=== PATIENT | male | born 1950 | race Caucasian/White ===

== ENCOUNTER 2024-04-05 21:43 | Emergency (ER) | payer MEDICARE, MEDICAID, SELFPAY ==
[2024-04-05 21:44] VITALS: BMI 20.9
--- NOTE | 2024-04-05 21:52 | EKG_ITS ---
[facility] Test Date: 2024-04-05 Pat Name: RICARDO DEAN Department: Room: - Gender: Male Director Account Management: : 1950 Requested By: Luis Boykin Order Number: [id number] Reading MD: Luis Boykin Measurements Intervals [place] Rate: 94 P: OR: QRS: -63 QRSD: 104 T: -65 QT: 364 QTc: 457 Interpretive Statements ATRIAL FIBRILLATION WITH ABERRANT CONDUCTION OR VENTRICULAR PREMATURE COMPLEXES Compared to ECG 03/16/2024 03:02:52 Ventricular premature complex(es) now present Aberrant conduction of supraventricular beat(s) now present Sinus rhythm no longer present Left anterior fascicular block no longer present /store/S0/[id number].pdf
[2024-04-05 22:04] VITALS: BP 98/63; PULSE 102; RESP 20; TEMP 36.6; O2SAT 95
--- NOTE | 2024-04-05 22:18 | XR_ITS ---
Examination: AP chest single view Technique: AP portable upright chest single view Exam date and time: April 05, 2024 10:26 PM Comparison March 15, 2024 Indications: Shortness of breath today Findings: Normal heart size Mild parenchymal disease in the right upper lobe including possible 8mm cavitary lesion right upper lobe No pulmonary edema Moderate osteopenia Impression: Mild parenchymal disease right upper lobe, possible small cavitary lesion Recommend AP lordotic chest follow-up
--- NOTE | 2024-04-05 22:19 | PD.EDRME ---
Rapid Medical Screening Exam RME Arrival date/time: 04/05/24 21:43 73M with history of asthma/COPD, GERD, and recent ME presents to ED with CP and SOB (SOB>CP). Chief Complaint: Chest Pain Vital signs: Vital Signs Temperature 97.9 F 04/05/24 22:04 Pulse Rate 102 H 04/05/24 22:04 Respiratory Rate 20 04/05/24 22:04 Blood Pressure 98/63 04/05/24 22:04 Pulse Oximetry (%) 95 04/05/24 22:04 Oxygen Delivery Method Room Air 04/05/24 22:04
[2024-04-05 23:15] LABS: Basophils % (Auto) 1 % (0-2.5); Eosinophils # (Auto) 0.2 Thou/mm3 (0.0-0.5); Eosinophils % (Auto) 4 % (0-10); Hematocrit 37.5 % (41.0-53.0); Hemoglobin 12.4 g/dL (13.5-16.0); Immature Granulocytes % (Auto) 0 % (0-0); Immature Granulocytes Auto 0.01 Thou/mm3 (0.00-0.00); Lymphocytes # (Auto) 1.4 Thou/mm3 (1.0-4.8); Lymphocytes % (Auto) 22 % (10-50); Mean Corpuscular HGB Conc 33.1 g/dl (31.0-37.0); Mean Corpuscular Hemoglobin 27.5 pg (25.0-35.0); Mean Corpuscular Volume 83 fL (80-100); Monocytes # (Auto) 0.9 Thou/mm3 (0.0-0.8); Monocytes % (Auto) 14 % (0-12); Neutrophils # (Auto) 3.6 Thou/mm3 (1.8-7.7); Neutrophils % (Auto) 59 % (37-80); Nucleated Red Blood Cell % 0 /100 WBC (0); Platelet Count 217 Thou/mm3 (140-440); Red Blood Count 4.51 Miln/mm3 (4.50-5.90); White Blood Count 6.1 Thou/mm3 (3.8-10.6)
[2024-04-05 23:30] LABS: INR 1.1 (0.9-1.3); Partial Thromboplastin Time 25.1 Seconds (22.0-36.0); Prothrombin Time 11.8 Seconds (9.0-12.2)
[2024-04-05 23:34] LABS: B-Type Natriuretic Peptide 344 pg/mL (0-100)
[2024-04-05 23:35] LABS: Alanine Aminotransferase 23 U/L (10-49); Albumin, Serum 3.9 gm/dL (3.4-4.8); Albumin/Globulin Ratio 1.4 (1.2-2.2); Alkaline Phosphatase 137 U/L (46-116); Anion Gap 7 (7-16); Aspartate Amino Transferase 21 U/L (0-34); BUN/Creatinine Ratio 17 Ratio (12-20); Bilirubin,Total 0.3 mg/dL (0.3-1.2); Blood Urea Nitrogen 15 mg/dL (9-23); Calcium 8.9 mg/dL (8.3-10.6); Carbon Dioxide 25.2 mMol/L (20.0-31.0); Chloride 107 mMol/L (98-107); Creatinine (Component) 0.9 mg/dL (0.6-1.3); Estimated Creatinine Clearance 66.6 mL/min (>60); Globulin 2.7 gm/dL (2.3-3.5); Glucose 104 mg/dL (74-106); Magnesium 2.1 mg/dL (1.6-2.6); Osmolality,Calculated 278 (275-295); Potassium 4.1 mMol/L (3.4-5.1); Sodium 139 mMol/L (136-145); Total Protein 6.6 gm/dL (5.7-8.2); Troponin I 0.043 ng/mL (0.0-0.045); eGFR > 60 See Note
[2024-04-05 23:59] VITALS: BP 136/78; PULSE 88; RESP 18; TEMP 36.7; O2SAT 100
[2024-04-06] VITALS (9 sets, daily range): BP systolic 114–150; BP diastolic 69–90; PULSE 90–110; RESP 16–24; TEMP 36.6–36.8; O2SAT 95–100
--- NOTE | 2024-04-06 01:05 | PD.EDCHEST ---
ED Chest Pain RME/HPI General Chief Complaint: Chest Pain Stated Complaint: Chest pain- recent ID Time Seen by Provider: 04/06/24 01:04 Arrival date/time: 04/05/24 21:43 Limitations: no limitations RME / HPI RME / HPI narrative: 04/05/24 21:43 73M with history of asthma/COPD, GERD, and recent ID presents to ED with CP and SOB (SOB>CP). ---- Dr. Swartz's Main ED Evaluation: 73yo male presents to the ED for complaints of shortness of breath and chest pain. Patient states his shortness of breath has been worsening over the last 2-3 days. He endorses having left-sided chest pain that is progressively getting worse and is unable to sleep. He notes he's been more stressed than usual due to being concerned over his . He denies any N/V, fever, chills or any other associated symptoms. No known allergies. Patient notes he hasn't smoked cigarettes since being discharged from the hospital on 03/18/24. Related Data Previous Rx's ?Medication ?Instructions ?Recorded famotidine 40 mg tablet (Pepcid) 40 mg PO QDAY #30 tabs 04/27/20 albuterol sulfate 90 mcg/actuation 1 inh inhalation QID PRN shortness 04/20/23 aerosol inhaler of breath or wheezing #8.5 grams aspirin 81 mg tablet,delayed 81 mg PO QDAY #30 tabs 03/18/24 release atorvastatin 80 mg tablet 80 mg PO QPM #30 tabs 03/18/24 ticagrelor 90 mg tablet (Brilinta) 90 mg PO BID 1 month #60 tabs 03/18/24 Allergies Allergy/AdvReac Type Severity Reaction Status Date / Time No Known Allergies Allergy Verified 04/05/24 21:46 Review of Systems Review of Systems Systems Reviewed: All systems reviewed, normal except as documented ED Exam General Limitations: Present no limitations General appearance: Present alert, in no apparent distress, cachectic and other (talking in full sentences) Head Head exam: Present atraumatic Eye Eye exam: Present normal appearance, PERRL and EOMI ENT ENT exam: Present normal exam, normal oropharynx and mucous membranes moist Neck Neck exam: Present normal inspection, full ROM and trachea midline Chest Chest inspection: Present symmetric chest wall rise and other (barrel chested) Respiratory Respiratory exam: Present other (rhonchi to the bilateral bases R>L); Absent wheezes or accessory muscle use Cardiovascular Cardiovascular exam: Present regular rate, normal rhythm and normal heart sounds Abdominal Exam Abdominal exam: Present soft and normal bowel sounds Extremities Exam Extremities exam: Present normal inspection and full ROM; Absent pedal edema Back Exam Back exam: Present normal inspection and full ROM Neurological Exam Neurological exam: Present alert, oriented X3 and CN II-XII intact Psychiatric Psychiatric exam: Present normal affect and normal mood Skin Skin exam: Present warm, dry, intact and normal color Course Course Course Narrative: CXR is ordered for determining the etiology of chest pain. 0600: Care signed out to Dr. Newton (emergency physician). Past medical, surgical, social and family history reviewed. Vitals and home medications reviewed. Results and treatment plan discussed. They will assume the care of the patient at this time and will follow the patient, pending CT chest. Quality Measures none Orders Category Date Time Status CT Screening NOW Care 04/06/24 06:05 Active EKG (ED ONLY) *Do not use* NOW Care 04/05/24 21:[address] chest w con Stat Exams 04/06/24 06:05 Ordered EKG (ED Only) Stat Exams 04/05/24 21:52 Ordered XR chest 1V portable Stat Exams 04/05/24 22:18 Completed B-Type Natriuretic Peptide Stat Lab 04/05/24 22:58 Completed CBC Stat Lab 04/05/24 22:58 Completed Comprehensive Metabolic Panel Stat Lab 04/05/24 22:58 Completed Magnesium Stat Lab 04/05/24 22:58 Completed Partial Thromboplastin Time Stat Lab 04/05/24 22:58 Completed Prothrombin Time with INR Stat Lab 04/05/24 22:58 Completed Troponin I Stat Lab 04/05/24 22:58 Completed Vital Signs Vital signs: Vital Signs Temperature 97.9 F 04/05/24 22:04 Pulse Rate 102 H 04/05/24 22:04 Respiratory Rate 20 04/05/24 22:04 Blood Pressure 98/63 04/05/24 22:04 Pulse Oximetry (%) 95 04/05/24 22:04 Oxygen Delivery Method Room Air 04/05/24 22:04 Pulse ox is 95% on room air, which is normal according to my interpretation. 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 BOB flow was 0 procedure and postprocedure 3, and 100% preprocedure stenosis and 0% stenosis post-thrombectomy and stent placement. Patient data External records reviewed:: [facility] previous records (Per chart review, patient was admitted here on 03/16/24 for STEMI.) Clinical information provided by:: patient Social determinants that could affect healthcare access:: none Patient has the following chronic illnesses:: COPD, asthma, GERD, ID How is presenting disease/condition affected by chronic disease/condition?: exacerbated by Evaluation data The following diagnostics were reviewed and interpreted by me:: lab results, radiology exam(s) and EKG tracing(s) Lab and/or radiology exams considered but not ordered:: none Interpretation Summary: CBC is normal, CMP is normal, Troponin is normal, BNP is elevated at 344, according to my interpretation. EKG done at 2202, aFib, rate of 94, ventricular PVCs, no ST depressions, similar Q wave compared to previous EKG on 03/16/24, according to my interpretation. ----- I have personally reviewed the radiology data and agree with the radiologist's interpretation below: [facility] Report Signed Patient: RICARDO DEAN Record#: [id number] Birthdate: 1950 Age/Sex: 73 / M Location: [facility] Attending Dr: Ordering Physician: Luis Boykin PA-C Date of Service: 04/05/24 Procedure(s): XR chest 1V portable Accession Number(s): [id number] cc: Flex Zuluaga MD; Luis Boykin PA-C~ Examination: AP chest single view Technique: AP portable upright chest single view Exam date and time: April 05, 2024 10:26 PM Comparison March 15, 2024 Indications: Shortness of breath today Findings: Normal heart size Mild parenchymal disease in the right upper lobe including possible 8mm cavitary lesion right upper lobe No pulmonary edema Moderate osteopenia Impression: Mild parenchymal disease right upper lobe, possible small cavitary lesion Recommend AP lordotic chest follow-up Dictated By: Flex Zuluaga MD Signed By: <Electronically signed by Flex Zuluaga MD in [place]> 04/05/24 3621 Medications / Prescriptions Medications or Prescriptions considered but not ordered:: none Medication administrations:: see above, if any Consultations Consultation(s) initiated? (list below): No Diagnosis Chest Pain Differential Diagnosis: other (pleural effusion, CHF, pericardial effusion, depression, electrolyte abnormality, dehydration, UTI) Most likely diagnosis given after review of the tests above:: see below Admission Indicated Admission indicated?: not indicated Admission Request Was there a request for admission?: No Disposition Plan Disposition Plan: other (specify) (Signed out to Dr. Newton at [address] chest.) Discharge Plan Plan Disposition Comment: stable at signout Prescriptions/Referrals Prescriptions/Med Rec: No Action famotidine [Pepcid] 40 mg tablet 40 mg PO QDAY Qty: 30 0RF aspirin 81 mg Tablet,Delayed Release (Dr/Ec) 81 mg PO QDAY Qty: 30 1RF Brilinta 90 mg Tablet 90 mg PO BID 30 Days Qty: 60 1RF atorvastatin 80 mg tablet 80 mg PO QPM Qty: 30 3RF albuterol sulfate 90 mcg/actuation HFA aerosol inhaler 1 inh inhalation QID PRN (Reason: shortness of breath or wheezing) Qty: 8.5 0RF Rx Instructions: Dispense with spacer and teaching Referrals: Walt Squires MD [Primary Care Provider] - In 1 week Problem List Clinical Impression: Shortness of breath Patient/Caregiver Discharge Instructions Print Language: Georgian
--- NOTE | 2024-04-06 02:29 | PC.NURSE ---
Pt sleeping. Arouses easily.
--- NOTE | 2024-04-06 06:05 | XR_ITS ---
Examination: CT chest with intravenous contrast 2-D sagittal and coronal reconstructions Exam date and time: April 06, 2024 0706 hours INDICATIONS: Coughing chest pain beginning one week ago, recent ureteral stent placement 2 weeks ago CTDI:vol (mGy) 7.52 DLP: (mGycm) 313 Technique: Multiple axial sections of the thorax have been obtained. Sections have been obtained, 3 mm slice thickness. Mediastinal and lung density settings have been obtained. Intravenous contrast administered, 60 cc Isovue-370. 2-D sagittal, coronal images obtained. Low dose protocols were performed. One or more of the following dose reduction techniques were used; automated exposure control, adjustment of the mA and/or KV according to patient size, use of iterative reconstruction technique. Findings: No thoracic aortic aneurysmal dilatation or dissection No pulmonary artery emboli on this non-CTA study Heavy calcification left main left anterior descending left circumflex coronary arteries No paratracheal tracheobronchial or bronchopulmonary adenopathy Pulmonary scarring throughout the lung 2 mm pulmonary nodule right lower lobe image 154 4 mm pulmonary nodule left lower lobe image 166 2 mm pulmonary nodule left lower lobe image 168 COPD with areas of airspace destruction, multiple No lobar pneumonia or pulmonary edema Retrocardiac gastric hernia Small left lobe liver cyst Spleen is not enlarged No pancreatic or adrenal mass Moderate thoracic spondylosis IMPRESSION: COPD Negative for pulmonary artery emboli Mild bilateral pulmonary fibrosis Subcentimeter pulmonary nodules as above, with this study is baseline recommend 6 month follow-up CT chest without contrast
--- NOTE | 2024-04-06 06:42 | PC.NURSE ---
Pt has been resting quietly. States pain very mild and increases with cough. Pt does havew nonproductive cough.
[2024-04-06 08:27] LABS: Troponin I 0.036 ng/mL (0.0-0.045)
--- NOTE | 2024-04-06 10:54 | EDNOTE_ITS ---
Emergency Room Addendum Addendum Narrative: 0600: Care assumed from Dr. Guerrero, the previous shift emergency physician. Past medical, surgical, social and family history reviewed. Vitals and home medications reviewed. I will assume the care of the patient at this time, pending CT chest report and delta troponin. Please refer to the emergency department record for history and examination from initial visit.? Nursing notes reviewed by me. Vital signs reviewed by me. [place] [facility] medical records reviewed by me. 1105: On reassessment, patient reports feeling improved. States about 3 weeks ago he had an CO and s/p PCI placement. Reports since then, has had on/off chava rtness of breath with dry cough. Last night states the dry cough kept him up and had difficulty sleeping. We reviewed all the results, analysis, and treatment plans. Patient is amenable to discharge. Strict return precautions were outlined. Patient was discharged in stable condition. DISPOSITION: Home DIAGNOSIS: Shortness of breath, COPD RADIOLOGY Ordering Physician: Sarah Guerrero MD Date of Service: 04/06/24 Procedure(s): CT chest w con Accession Number(s): [id number] cc: Walt Squires MD; Flex Zuluaga MD; Sarah Guerrero MD~ Examination: CT chest with intravenous contrast 2-D sagittal and coronal reconstructions Exam date and time: April 06, 2024 0706 hours INDICATIONS: Coughing chest pain beginning one week ago, recent ureteral stent placement 2 weeks ago CTDI:vol (mGy) 7.52 DLP: (mGycm) 313 Technique: Multiple axial sections of the thorax have been obtained. Sections have been obtained, 3 mm slice thickness. Mediastinal and lung density settings have been obtained. Intravenous contrast administered, 60 cc Isovue-370. 2-D sagittal, coronal images obtained. Low dose protocols were performed. One or more of the following dose reduction techniques were used; automated exposure control, adjustment of the mA and/or KV according to patient size, use of iterative reconstruction technique. Findings: No thoracic aortic aneurysmal dilatation or dissection No pulmonary artery emboli on this non-CTA study Heavy calcification left main left anterior descending left circumflex coronary arteries No paratracheal tracheobronchial or bronchopulmonary adenopathy Pulmonary scarring throughout the lung 2 mm pulmonary nodule right lower lobe image 154 4 mm pulmonary nodule left lower lobe image 166 2 mm pulmonary nodule left lower lobe image 168 COPD with areas of airspace destruction, multiple No lobar pneumonia or pulmonary edema Retrocardiac gastric hernia Small left lobe liver cyst Spleen is not enlarged No pancreatic or adrenal mass Moderate thoracic spondylosis IMPRESSION: COPD Negative for pulmonary artery emboli Mild bilateral pulmonary fibrosis Subcentimeter pulmonary nodules as above, with this study is baseline recommend 6 month follow-up CT chest without contrast Dictated By: Flex Zuluaga MD Signed By: <Electronically signed by Flex Zuluaga MD in [place]> 04/06/24 1011
[2024-04-06] MEDS: MethylPREDNISolone SOD SUCC 62.5 MG/ML 2ML VIAL 125 MG IVP (12:16)
[2024-04-06] MEDS: ALBUTEROL/IPRATROPIUM (Duoneb) RT SOL 3 ML NEBU INH (12:25)
== END 2024-04-06 13:33 | disposition home or self-care (01) ==
PROVIDERS: Physician Assistant; Emergency Provider Emergency Medicine; PCP Family Medicine
DX: J44.89 Other specified chronic obstructive pulmonary disease (principal); J84.10 Pulmonary fibrosis, unspecified; I48.91 Unspecified atrial fibrillation; R91.8 Other nonspecific abnormal finding of lung field; Z79.02 Long term (current) use of antithrombotics/antiplatelets; I25.2 Old myocardial infarction; Z95.5 Presence of coronary angioplasty implant and graft; Z87.891 Personal history of nicotine dependence
CPT/HCPCS: 36415; 71045; 71260; 80053; 83735; 83880; 84484; 85025; 85610; 85730; 93005; 94640; 96374; 99285; A4649; A9270; J2919; Q9967

== ENCOUNTER 2024-05-18 13:58 | Emergency (ER) | payer MEDICARE, MEDICAID, SELFPAY ==
[2024-05-18] VITALS (10 sets, daily range): BP systolic 82–137; BP diastolic 69–88; PULSE 108–179; RESP 17–31; TEMP 37.2; O2SAT 91–100; BMI 20.5
--- NOTE | 2024-05-18 14:05 | EKG_ITS ---
[facility] Test Date: 2024-05-18 Pat Name: RICARDO DEAN Department: Room: - Gender: Male Economic Geographer: : 1950 Requested By: Madhavi Joaquin Order Number: [id number] Reading MD: Madhavi Joaquin Measurements Intervals [place] Rate: 174 P: IN: QRS: -59 QRSD: 90 T: -35 QT: 261 QTc: 445 Interpretive Statements SUPRAVENTRICULAR TACHYCARDIA ACUTE OR Compared to ECG 04/05/2024 22:02:59 Atrial fibrillation no longer present Ventricular premature complex(es) no longer present Aberrant conduction of supraventricular beat(s) no longer present /store/S0/[id number]/ecg/[id number].pdf
[2024-05-18] MEDS: ADENOSINE INJ 3 MG/ML VIAL 6 MG IVP (14:11)
--- NOTE | 2024-05-18 14:14 | EKG_ITS ---
[facility] Test Date: 2024-05-18 Pat Name: RICARDO DEAN Department: Room: - Gender: Male Surgical Aide: : 1950 Requested By: Madhavi Joaquin Order Number: [id number] Reading MD: Madhaiv Joaquin Measurements Intervals [place] Rate: 113 P: 49 SD: 152 QRS: -55 QRSD: 88 T: -30 QT: 315 QTc: 433 Interpretive Statements SINUS TACHYCARDIA WITH OCCASIONAL VENTRICULAR PREMATURE COMPLEXES MINIMAL VOLTAGE CRITERIA FOR LVH, CONSIDER NORMAL VARIANT [MEETS CRITERIA IN ONE OF: R(aVL), S(V1), R(V5), R(V5/V6)+S(V1)] ACUTE VT Compared to ECG 05/18/2024 14:07:15 Ventricular premature complex(es) now present Supraventricular tachycardia no longer present /store/S0/[id number]/[id number].pdf
--- NOTE | 2024-05-18 14:14 | XR_ITS ---
Examination: AP chest single view Technique: AP portable upright chest single view Standing time: May 18, 2024 1430 hrs. Comparison April 05, 2024 Indications: Onset chest pain today. Findings: Parenchymal disease in the right upper lobe again noted, which may represent scarring Normal heart size Accentuation of the bronchovascular markings No pulmonary edema Moderate osteopenia Impression: Accentuation of bronchovascular markings, consider bronchitis
--- NOTE | 2024-05-18 14:25 | PD.EDARRY ---
ED Arrhythmia Palp. RME/HPI General Chief Complaint: Chest Pain Stated Complaint: SVT Time Seen by Provider: 05/18/24 14:13 Arrival date/time: 05/18/24 13:58 RME / HPI RME / HPI narrative: DR. LYON MAIN ED EVALUATION: 73 year old male presents to the Emergency Department [facility] from home with complaints of chest palpitations and chest tightness, no real aching chest pain more described as tightness. Heart rate in the 170s per EMS. No other symptoms reported at this time. PMHx: Asthma/COPD, GERD, and recent CA (03/2024). Social Hx: Former smoker. Related Data Previous Rx's ?Medication ?Instructions ?Recorded famotidine 40 mg tablet (Pepcid) 40 mg PO QDAY #30 tabs 04/27/20 albuterol sulfate 90 mcg/actuation 1 inh inhalation QID PRN shortness 04/20/23 aerosol inhaler of breath or wheezing #8.5 grams aspirin 81 mg tablet,delayed 81 mg PO QDAY #30 tabs 03/18/24 release atorvastatin 80 mg tablet 80 mg PO QPM #30 tabs 03/18/24 ticagrelor 90 mg tablet (Brilinta) 90 mg PO BID 1 month #60 tabs 03/18/24 albuterol sulfate 90 mcg/actuation 2 puff inhalation Q6H PRN 04/06/24 aerosol inhaler shortness of breath or wheezing #8.5 grams Allergies Allergy/AdvReac Type Severity Reaction Status Date / Time No Known Allergies Allergy Verified 05/18/24 14:20 Review of Systems Review of Systems Systems Reviewed: All systems reviewed, normal except as documented Narrative Review of Systems: GEN: No fever, no chills, no weight loss EYES: No discharge, no visual changes, no pain HEENT: No ear pain, no congestion, no sore throat PULM: No shortness of breath, no cough, no congestion CV: + chest palpitations, + chest tightness, no dyspnea on exertion GI: No nausea, no vomiting, no diarrhea, no pain, no constipation : No frequency, no urgency and no dysuria MUSC/SKEL: No joint pain, no back pain SKIN: No rash PSYCH: No hallucinations, no depression HEME/LYMPH: No easy bleeding or bruising tendencies NEURO: No weakness, no headache Past Medical History Past Medical History CARDIAC: Positive Cardiac Disorders (CA 2 wks ago); Negative Congestive Heart Failure RESPIRATORY: Positive Chronic Obstructive Pulmonary Disease (COPD); Negative Asthma GASTROINTESTINAL: Positive Ulcer and Gastroesophageal Reflux Disease GENITOURINARY: Negative Renal Disease ENT: Positive Cataracts ENDOCRINE: Negative Diabetes Mellitus Type 1 or Diabetes Mellitus Type 2 HEMATOLOGIC: Negative Sickle Cell Disease Social History SMOKING STATUS: Former smoker SECOND HAND EXPOSURE: Yes SUBSTANCE USE: does not use ED Exam Narrative Physical exam: GENERAL APPEARANCE: alert and oriented x 4, well-developed, well-nourished, no acute distress VITALS: All vitals were reviewed and the pulse ox is 100% on room air, which is normal according to my interpretation. HEENT: Normocephalic, atraumatic; pupils equal, round, reactive to light; EOMI; mucous membranes pink, moist; oropharynx clear NECK: Supple LUNGS: CTABL; no wheezes, no rales, no rhonchi HEART: Heart is tachycardic; no murmurs ABDOMEN: non distended; normal BS; soft, no tenderness, no guarding, no rebound; no masses, no organomegaly, no hernia BACK: no CVA tenderness EXTREMITIES: atraumatic; no edema NEUROLOGIC: awake; alert and oriented x4; cranial nerves II-XII grossly intact; no focal sensory or motor deficits PSYCHIATRIC: appropriate mood and affect SKIN: warm, dry, normal color; no rashes Course Quality Measures none Orders Category Date Time Status Dial Mounter NOW Care 05/18/24 14:14 Active EKG (ED ONLY) *Do not use* NOW Care 05/18/24 14:05 Completed EKG (ED ONLY) *Do not use* NOW Care 05/18/24 14:14 Completed EKG (ED Only) Stat Exams 05/18/24 14:05 Draft EKG (ED Only) Stat Exams 05/18/24 14:14 Draft XR chest 1V portable Stat Exams 05/18/24 14:14 Ordered B-Type Natriuretic Peptide Stat Lab 05/18/24 14:14 Ordered CBC Stat Lab 05/18/24 14:14 Ordered Comprehensive Metabolic Panel Stat Lab 05/18/24 14:14 Ordered Lipase Stat Lab 05/18/24 14:14 Ordered Magnesium Stat Lab 05/18/24 14:14 Ordered Partial Thromboplastin Time Stat Lab 05/18/24 14:14 Ordered Prothrombin Time with INR Stat Lab 05/18/24 14:14 Ordered Troponin I Stat Lab 05/18/24 14:14 Ordered Adenosine 6mg Inj [Adenocard Inj] Med 05/18/24 14:02 Discontinued 12 mg .ROUTE .STK-MED ONE Adenosine 6mg Inj [Adenocard Inj] Med 05/18/24 14:00 Discontinued 6 mg .ROUTE .STK-MED ONE Adenosine 6mg Inj [Adenocard Inj] Med 05/18/24 14:01 Discontinued 6 mg .ROUTE .STK-MED ONE Adenosine 6mg Inj [Adenocard Inj] Med 05/18/24 14:07 Discontinued 6 mg IVP X1 ONE Arrhythmia/Palpitations MDM Narrative MDM Narrative:: Amara Beckham am scribing for and in the presence of Dr. Lyon. EKG at 1412 hours: sinus tachycardia, rate 113, Patient data External records reviewed:: [facility] previous records (Reviewed last ED visit dated 04/06/24, discharged with the following: COPD ) and EMS form Clinical information provided by:: patient and EMS Social determinants that could affect healthcare access:: other (specify) (Former smoker) Patient has the following chronic illnesses:: Asthma/COPD, GERD, and recent CA (03/2024) How is presenting disease/condition affected by chronic disease/condition?: exacerbated by Evaluation data The following diagnostics were reviewed and interpreted by me:: lab results and radiology exam(s) Lab and/or radiology exams considered but not ordered:: none Interpretation Summary: Procedure(s): XR chest 1V portable Accession Number(s): [id number] cc: Walt Squires MD; Flex Zuluaga MD; Madhavi Lyon MD~ Examination: AP chest single view Technique: AP portable upright chest single view Standing time: May 18, 2024 1430 hrs. Comparison April 05, 2024 Indications: Onset chest pain today. Findings: Parenchymal disease in the right upper lobe again noted, which may represent scarring Normal heart size Accentuation of the bronchovascular markings No pulmonary edema Moderate osteopenia Impression: Accentuation of bronchovascular markings, consider bronchitis Dictated By: Flex Zuluaga MD Medications / Prescriptions Medications or Prescriptions considered but not ordered:: none Medication administrations:: Medication Administration History Discontinued Medications Adenosine (Adenosine Inj 3 Mg/Ml Vial) Confirm Administered Dose 6 mg .ROUTE .STK-MED ONE Stop: 05/18/24 14:01 Adenosine (Adenosine Inj 3 Mg/Ml Vial) Confirm Administered Dose 6 mg .ROUTE .STK-MED ONE Stop: 05/18/24 14:02 Adenosine (Adenosine Inj 3 Mg/Ml Vial) 6 mg IVP X1 ONE Stop: 05/18/24 14:08 Adenosine (Adenosine Inj 3 Mg/Ml Vial) Confirm Administered Dose 12 mg .ROUTE .STK-MED ONE Stop: 05/18/24 14:03 Consultations Consultation(s) initiated? (list below): No Diagnosis Differential diagnosis arrhythmia/palpitations: palpitations, anxiety and supraventricular tachycardia Most likely diagnosis given after review of the tests above:: SVT Admission Indicated Admission indicated?: not indicated Admission Request Was there a request for admission?: No Disposition Plan Disposition Plan: Discharge Discharge Attestation Discharge Attestation: The patient and all family members were given an opportunity to ask questions and understood the discharge instructions. Discharge instructions specifically effects, indications for sooner follow up or return to the emergency department, and the expected course of current diagnosis. Patient condition: Stable Discharge Plan Plan Patient Disposition: HOME (Self Care) Prescriptions/Referrals Prescriptions/Med Rec: No Action famotidine [Pepcid] 40 mg tablet 40 mg PO QDAY Qty: 30 0RF aspirin 81 mg Tablet,Delayed Release (Dr/Ec) 81 mg PO QDAY Qty: 30 1RF Brilinta 90 mg Tablet 90 mg PO BID 30 Days Qty: 60 1RF atorvastatin 80 mg tablet 80 mg PO QPM Qty: 30 3RF albuterol sulfate 90 mcg/actuation HFA aerosol inhaler 2 puff inhalation Q6H PRN (Reason: shortness of breath or wheezing) Qty: 8.5 0RF albuterol sulfate 90 mcg/actuation HFA aerosol inhaler 1 inh inhalation QID PRN (Reason: shortness of breath or wheezing) Qty: 8.5 0RF Rx Instructions: Dispense with spacer and teaching Referrals: Walt Squires MD [Primary Care Provider] - In 1 week Problem List Clinical Impression: SVT (supraventricular tachycardia) Patient/Caregiver Discharge Instructions Education Materials: Understanding Supraventricular ..., Treatment for Supraventricular ... Print Language: Vietnamese Stand Alone Forms: [facility] Award Info., Patient Portal Info Letter
--- NOTE | 2024-05-18 14:30 | PC.LAC ---
PT MERI FROM HOME HAS BEEN HAVING CHEST TIGHTNESS SINCE AROUND 0600 THIS MORNING, DENIES ANY PAIN ASSOCIATED WITH IT, HOWEVER DOES STATE THAT HE HAD DIZZINESS AND SOB WITH IT. WHEN EMS ARRIVED ON SCENE PT WAS LAYING ON HIS COUCH, ONCE PLACED ON THEIR MONITOR PT WAS IN SVT, PT ARRIVES STAT MEDICAL, ARRIVED TO LEFT AC. PT CONNECTED TO ZOLL PADS AND ADENOSINE ADMINISTERED AND SUCCESSFUL UPON ARRIVAL. PTS HR IN ONE-TEENS AT THIS TIME. CALL [facility] IN [facility], RADIOLOGY AT BEDSIDE.
[2024-05-18 15:26] LABS: Basophils % (Auto) 0 % (0-2.5); Eosinophils # (Auto) 0.1 Thou/mm3 (0.0-0.5); Eosinophils % (Auto) 1 % (0-10); Hematocrit 35.6 % (41.0-53.0); Hemoglobin 11.6 g/dL (13.5-16.0); Immature Granulocytes % (Auto) 0 % (0-0); Immature Granulocytes Auto 0.01 Thou/mm3 (0.00-0.00); Lymphocytes # (Auto) 1.6 Thou/mm3 (1.0-4.8); Lymphocytes % (Auto) 22 % (10-50); Mean Corpuscular HGB Conc 32.6 g/dl (31.0-37.0); Mean Corpuscular Hemoglobin 26.4 pg (25.0-35.0); Mean Corpuscular Volume 81 fL (80-100); Monocytes # (Auto) 0.6 Thou/mm3 (0.0-0.8); Monocytes % (Auto) 9 % (0-12); Neutrophils # (Auto) 5.1 Thou/mm3 (1.8-7.7); Neutrophils % (Auto) 68 % (37-80); Nucleated Red Blood Cell % 0 /100 WBC (0); Platelet Count 219 Thou/mm3 (140-440); RDW Standard Deviation 41.9 fL (35.1-43.9); White Blood Count 7.4 Thou/mm3 (3.8-10.6)
--- NOTE | 2024-05-18 15:30 | PC.NURSE ---
pt maintaining HR in the one-teens. Pt reports he is feeling better, vss remain stable on tele call bai in reach.
[2024-05-18 15:41] LABS: B-Type Natriuretic Peptide 450 pg/mL (0-100)
[2024-05-18 15:44] LABS: INR 1.1 (0.9-1.3); Partial Thromboplastin Time 28.8 Seconds (22.0-36.0); Prothrombin Time 12.3 Seconds (9.0-12.2)
[2024-05-18 15:47] LABS: Alanine Aminotransferase 22 U/L (10-49); Albumin, Serum 3.7 gm/dL (3.4-4.8); Albumin/Globulin Ratio 1.3 (1.2-2.2); Alkaline Phosphatase 114 U/L (46-116); Anion Gap 10 (7-16); Aspartate Amino Transferase 18 U/L (0-34); BUN/Creatinine Ratio 18 Ratio (12-20); Bilirubin,Total 0.5 mg/dL (0.3-1.2); Blood Urea Nitrogen 18 mg/dL (9-23); Calcium 8.3 mg/dL (8.3-10.6); Calcium (Corrected) 8.5 mg/dL (8.5-10.1); Carbon Dioxide 23.5 mMol/L (20.0-31.0); Chloride 106 mMol/L (98-107); Estimated Creatinine Clearance 60.4 mL/min (>60); Globulin 2.8 gm/dL (2.3-3.5); Glucose 93 mg/dL (74-106); Lipase 39 U/L (12-53); Magnesium 1.6 mg/dL (1.6-2.6); Osmolality,Calculated 279 (275-295); Potassium 4.1 mMol/L (3.4-5.1); Sodium 139 mMol/L (136-145); Total Protein 6.5 gm/dL (5.7-8.2); Troponin I 0.024 ng/mL (0.0-0.045); eGFR > 60 See Note
== END 2024-05-18 16:15 | disposition home or self-care (01) ==
PROVIDERS: Emergency Provider Emergency Medicine; PCP Family Medicine
DX: I47.10 Supraventricular tachycardia, unspecified (principal)
CPT/HCPCS: 36415; 71045; 80053; 83690; 83735; 83880; 84484; 85025; 85610; 85730; 93005; 96374; 99284; J0153

== ENCOUNTER 2024-09-10 20:05 | Emergency (ER) | payer MEDICARE, SELFPAY ==
[2024-09-10 20:06] VITALS: BMI 20.7
--- NOTE | 2024-09-10 20:14 | EDNOTE_ITS ---
ED Chest Pain RME/HPI General Chief Complaint: Chest Pain Stated Complaint: CHEST PAIN Time Seen by Provider: 09/10/24 20:09 Arrival date/time: 09/10/24 20:05 RME / HPI RME / HPI narrative: HPI: 73 y/o male with Hx of COPD and PMx of MD presents to ED c/o chest pain x approximately 12 hours. Pain is currently a 4/10 and 0/10 yesterday. Denies fever or cough. Also denies pain with deep breaths and movement. Patient has an inhaler PRN for COPD and admits to recently quitting smoking. Patient also takes medication for cholesterol and a blood thinner, but is not sure why he is taking the blood thinner. No other complaints. ROS: All negative except as documented in HPI. Physical Exam: General: Alert and oriented. No acute distress when remaining still. Appears anxious. Eyes: Conjunctivae and lids clear. ENT: No nasal congestion. Neck: Supple. Heart: RRR. Lungs: No respiratory distress. Good air movement. No rhonchi, wheezing, rales. Chest: No tenderness. Abdomen: Soft and nontender. Back: No CVA tenderness. Skin: Warm and dry. Neuro: Alert and oriented X 3. I reviewed all diagnostic test results. My interpretation of the EKG is: Sinus rhythm (72 bpm) with nonspecific ST-T changes. My interpretation of the chest x-ray is NAD. Blood tests unremarkable including negative troponin. At this point, diagnoses include history of COPD. Recommended more outpatient workup. Based on my best medical judgment, made decision no further evaluation or treatment indicated at this time. Patient understands and agrees to the discharge instructions customized and printed, see below. Discharge instructions from Dr. Gonzalez: 1. After extensive evaluation, there is no life-threatening condition.? Such as heart attack or pneumothorax (collapsed lung). 2. Your pain is originating from the chest wall and not from an internal organ.? The chest wall has many joints and muscles between the ribs, so sprains and strains are common.??Especially with your COPD. 3. Apply ice or heat if helpful.? Tylenol/ibuprofen as needed. 4. See a private doctor on 09/11/2024 for recheck and further care. To make sure there is no serious underlying heart condition, ask to help you get more tests for your heart that cannot be done here in the ER.? Such as Holter Monitor (cardiac monitoring at home from a day to even a month), heart stress test (on treadmill or with medication), echocardiogram (imaging of your heart structures), heart catherization (checking for blockages in your heart arteries), and a referral to see a Vocational Nurse Lvn.? And ask for help to quit smoking. 5. Seek immediate medical care with worsening or with any concerns.?? Phoenix Gonzalez MD Related Data Previous Rx's ?Medication ?Instructions ?Recorded famotidine 40 mg tablet (Pepcid) 40 mg PO QDAY #30 tab s 04/27/20 albuterol sulfate 90 mcg/actuation 1 inh inhalation QI D PRN shortness 04/20/23 aerosol inhaler of breath or wheezing #8.5 g ashli aspirin 81 mg tablet,delayed 81 mg PO QDAY #30 tabs release atorvastatin 80 mg tablet 80 mg PO QPM #30 tabs ticagrelor 90 mg tablet (Brilinta) 90 mg PO BID 1 nelsy h #60 tabs 03/18/24 albuterol sulfate 90 mcg/actuation 2 puff inhalation Q 6H PRN 04/06/24 aerosol inhaler shortness of breath or wheez ing #8.5 grams Allergies Allergy/AdvReac Type Severity Reaction Status Date / Time No Known Allergies Allergy Verified 05/18/24 14:20 Review of Systems Review of Systems Systems Reviewed: All systems reviewed, normal except as documented Past Medical History Past Medical History CARDIAC: Positive Cardiac Disorders (MD 2 wks ago) RESPIRATORY: Positive Chronic Obstructive Pulmonary Disease (COPD) GASTROINTESTINAL: Positive Ulcer and Gastroesophageal Reflux Disease ENT: Positive Cataracts Social History SECOND HAND EXPOSURE: Yes ED Exam Narrative Physical exam: Refer to HPI above. Course Course Course Narrative: CXR is ordered for determining the etiology of shortness of breath. Quality Measures none Orders Category Date Time Status EKG (ED ONLY) *Do not use* NOW Care 09/10/24 20:14 Completed EKG (ED Only) Stat Exams 09/10/24 20:14 Draft XR chest 2V Stat Exams 09/10/24 20:16 Completed CBC Stat Lab 09/10/24 20:17 Completed CMP [Comprehensive Metabolic Panel] Stat Lab 09/10/24 20:17 Completed Magnesium Stat Lab 09/10/24 20:17 Completed Troponin I Stat Lab 09/10/24 20:17 Completed Vital Signs Vital signs: Vital Signs Temperature 98.1 F 09/10/24 20:21 Pulse Rate 102 H 09/10/24 20:21 Respiratory Rate 17 09/10/24 20:21 Blood Pressure 118/76 09/10/24 20:21 Pulse Oximetry (%) 96 09/10/24 20:21 Oxygen Delivery Method Room Air 09/10/24 20:21 Chest Pain MDM Narrative MDM Narrative:: Scribe Attestation: Caitlyn Beckham, am scribing for and in the presence of Dr. Gonzalez. Provider Notation: Although this document has been carefully reviewed, there may still be some phonetic and other typographical errors.? These errors are purely grammatical due to imperfections in the software program and should not be construed in any way to? compromise the substance of the patient's medical care during this visit. 73 y/o male with Hx of COPD and PMx of MD presents to ED c/o chest pain, shortness of breath, and lightheadedness x approximately 12 hours. Patient data External records reviewed:: [facility] previous records ( Reviewed prior ED records from 05/18/24. Patient was seen for SVT (supraventricular tachycardia).) Clinical information provided by:: patient Social determinants that could affect healthcare access:: none Patient has the following chronic illnesses:: Chronic Obstructive Pulmonary Disease, Ulcer, Gastroesophageal Reflux Disease, Cataracts. How is presenting disease/condition affected by chronic disease/condition?: exacerbated by Evaluation data The following diagnostics were reviewed and interpreted by me:: EKG tracing(s) (My interpretation of the EKG is: Sinus rhythm (72 bpm) with nonspecific ST-T changes. Phoenix Gonzalez MD) Lab and/or radiology exams considered but not ordered:: None Interpretation Summary: I reviewed all diagnostic test results. My interpretation of the EKG is: Sinus rhythm (72 bpm) with nonspecific ST-T changes. My interpretation of the chest x-ray is NAD. Blood tests unremarkable including negative troponin. Medications / Prescriptions Medications or Prescriptions considered but not ordered:: None Medication administrations:: N/A Consultations Consultation(s) initiated? (list below): No Diagnosis Chest Pain Differential Diagnosis: fracture of rib, pneumothorax, stable angina, unstable angina pectoris, atypical chest pain, st elevation myocardial infarction, costochondritis and chest pain Most likely diagnosis given after review of the tests above:: History of COPD Admission Indicated Admission indicated?: not indicated Explain why admission is indicated or not indicated:: With improvement, there was no indication for admission. Admission Request Was there a request for admission?: No Disposition Plan Disposition Plan: Discharge Discharge Attestation Discharge Attestation: The patient and all family members were given an opportunity to ask questions and understood the discharge instructions. Discharge instructions specifically effects, indications for sooner follow up or return to the emergency department, and the expected course of current diagnosis. Patient condition: Stable Discharge Plan Plan Patient Disposition: HOME (Self Care) Prescriptions/Referrals Prescriptions/Med Rec: No Action famotidine [Pepcid] 40 mg tablet 40 mg PO QDAY Qty: 30 0RF aspirin 81 mg Tablet,Delayed Release (Dr/Ec) 81 mg PO QDAY Qty: 30 1RF Brilinta 90 mg Tablet 90 mg PO BID 30 Days Qty: 60 1RF atorvastatin 80 mg tablet 80 mg PO QPM Qty: 30 3RF albuterol sulfate 90 mcg/actuation HFA aerosol inhaler 2 puff inhalation Q6H PRN (Reason: shortness of breath or wheezing) Qty: 8.5 0RF albuterol sulfate 90 mcg/actuation HFA aerosol inhaler 1 inh inhalation QID PRN (Reason: shortness of breath or wheezing) Qty: 8.5 0RF Rx Instructions: Dispense with spacer and teaching Referrals: Walt Squires MD [Primary Care Provider] - In 1 week Problem List Clinical Impression: History of COPD Patient/Caregiver Discharge Instructions Discharge Activity: activity as tolerated Education Materials: ED COPD Flare, ED Chest Pain, Uncertain Cause Additional Instructions: Discharge instructions from Dr. Gonzalez: 1. After extensive evaluation, there is no life-threatening condition.? Such as heart attack or pneumothorax (collapsed lung). 2. Your pain is originating from the chest wall and not from an internal organ.? The chest wall has many joints and muscles between the ribs, so sprains and strains are common.??Especially with your COPD. 3. Apply ice or heat if helpful.? Tylenol/ibuprofen as needed. 4. See a private doctor on 09/11/2024 for recheck and further care. To make sure there is no serious underlying heart condition, ask to help you get more tests for your heart that cannot be done here in the ER.? Such as Holter Monitor (cardiac monitoring at home from a day to even a month), heart stress test (on treadmill or with medication), echocardiogram (imaging of your heart structures), heart catherization (checking for blockages in your heart arteries), and a referral to see a Vocational Nurse Lvn.? And ask for help to quit smoking. 5. Seek immediate medical care with worsening or with any concerns.?? Print Language: South Sudanese Stand Alone Forms: [facility] Award Info., Patient Portal Info Letter
--- NOTE | 2024-09-10 20:14 | EKG_ITS ---
[facility] Test Date: 2024-09-10 Pat Name: RICARDO DEAN Department: Room: - Gender: Male [employer]: : 1950 Requested By: Phoenix Porter Order Number: [id number] Reading MD: Phoenix Porter Measurements Intervals [place] Rate: 90 P: 64 GA: 152 QRS: -81 QRSD: 114 T: -28 QT: 368 QTc: 452 Interpretive Statements SINUS RHYTHM WITH OCCASIONAL SUPRAVENTRICULAR PREMATURE COMPLEXES MODERATE VOLTAGE CRITERIA FOR LVH, CONSIDER NORMAL VARIANT [MEETS CRITERIA IN ONE OF: R(aVL), S(V1), R(V5), R(V5/V6)+S(V1)] INFERIOR MYOCARDIAL INFARCTION , OF INDETERMINATE AGE [40+ ms Q WAVE AND/OR ST/T ABNORMALITY IN II/aVF] Compared to ECG 05/18/2024 14:13:47 Sinus tachycardia no longer present Myocardial infarct finding still present /store/S0/[id number]/[id number].pdf
--- NOTE | 2024-09-10 20:16 | XR_ITS ---
Examination: PA lateral chest 2 views TECHNIQUE: Upright PA and lateral chest 2 views Date and time: September 10, 2024 2134 hours Comparison May 18, 2024 INDICATIONS: Shortness of breath today FINDINGS: Normal heart size Mild hyperexpansion. No pneumonia or pulmonary edema Scarring in the right upper lobe IMPRESSION: No interval pneumonia or pulmonary edema
[2024-09-10 20:21] VITALS: BP 118/76; PULSE 102; RESP 17; TEMP 36.7; O2SAT 96
[2024-09-10 20:32] LABS: Basophils % (Auto) 0 % (0-2.5); Eosinophils # (Auto) 0.2 Thou/mm3 (0.0-0.5); Eosinophils % (Auto) 3 % (0-10); Hematocrit 32.5 % (41.0-53.0); Hemoglobin 10.5 g/dL (13.5-16.0); Immature Granulocytes % (Auto) 0 % (0-0); Immature Granulocytes Auto 0.01 Thou/mm3 (0.00-0.00); Lymphocytes # (Auto) 1.9 Thou/mm3 (1.0-4.8); Lymphocytes % (Auto) 25 % (10-50); Mean Corpuscular HGB Conc 32.3 g/dl (31.0-37.0); Mean Corpuscular Hemoglobin 24.2 pg (25.0-35.0); Mean Corpuscular Volume 75 fL (80-100); Monocytes # (Auto) 0.7 Thou/mm3 (0.0-0.8); Monocytes % (Auto) 10 % (0-12); Neutrophils # (Auto) 4.6 Thou/mm3 (1.8-7.7); Neutrophils % (Auto) 62 % (37-80); Nucleated Red Blood Cell % 0 /100 WBC (0); Platelet Count 252 Thou/mm3 (140-440); RDW Standard Deviation 47.8 fL (35.1-43.9); Red Blood Count 4.33 Miln/mm3 (4.50-5.90); White Blood Count 7.4 Thou/mm3 (3.8-10.6)
[2024-09-10 20:51] LABS: Alanine Aminotransferase 28 U/L (10-49); Albumin, Serum 3.7 gm/dL (3.4-4.8); Albumin/Globulin Ratio 1.4 (1.2-2.2); Alkaline Phosphatase 115 U/L (46-116); Anion Gap 6 (7-16); Aspartate Amino Transferase 29 U/L (0-34); BUN/Creatinine Ratio 15 Ratio (12-20); Bilirubin,Total 0.3 mg/dL (0.3-1.2); Blood Urea Nitrogen 15 mg/dL (9-23); Calcium 8.6 mg/dL (8.3-10.6); Calcium (Corrected) 8.8 mg/dL (8.5-10.1); Carbon Dioxide 24.8 mMol/L (20.0-31.0); Chloride 108 mMol/L (98-107); Estimated Creatinine Clearance 59.1 mL/min (>60); Globulin 2.7 gm/dL (2.3-3.5); Glucose 104 mg/dL (74-106); Magnesium 1.7 mg/dL (1.6-2.6); Osmolality,Calculated 278 (275-295); Potassium 4.2 mMol/L (3.4-5.1); Sodium 139 mMol/L (136-145); Total Protein 6.4 gm/dL (5.7-8.2); Troponin I 0.023 ng/mL (0.0-0.045); eGFR > 60 See Note
== END 2024-09-10 22:17 | disposition home or self-care (01) ==
PROVIDERS: Emergency Provider Emergency Medicine; PCP Family Medicine
DX: J44.9 Chronic obstructive pulmonary disease, unspecified (principal); I49.1 Atrial premature depolarization; Z87.891 Personal history of nicotine dependence
CPT/HCPCS: 36415; 71046; 80053; 83735; 84484; 85025; 93005; 99283

== ENCOUNTER 2024-10-04 19:49 | Emergency (ER) | payer MEDICARE, SELFPAY ==
[2024-10-04 19:58] VITALS: BP 141/74; PULSE 85; RESP 18; TEMP 36.9; O2SAT 93; BMI 20.9
[2024-10-04 20:10] VITALS: PULSE 91; RESP 18; O2SAT 99
--- NOTE | 2024-10-04 20:35 | EDNOTE_ITS ---
ED Chest Pain RME/HPI General Chief Complaint: Chest Pain Stated Complaint: CHEST PAIN Time Seen by Provider: 10/04/24 20:35 Arrival date/time: 10/04/24 19:49 RME / HPI RME / HPI narrative: This section includes all my notes and documentations, including HPI, PE, and ED course. Phoenix Gonzalez MD HPI: 73yo male with a history of COPD, [place] s/p stent placement BIBA from home presents to the ED for a chief complaint of chest/abdominal pain. Patient states he started having nausea and vomiting this morning. Patient states he started having an upset stomach and has developed the pain over the last few hours, so he had his friend call 911 to come in for evaluation. No fever or chills. No other complaints reported. ROS: All negative except as documented in HPI. Physical Exam: General: Alert and oriented. No acute distress when remaining still. Eyes: Conjunctivae and lids clear. ENT: No nasal congestion. Neck: Supple. Heart: RRR. Lungs: No respiratory distress. Good air movement with mild rhonchi. Abdomen: Soft and mild epigastric tenderness. Normal bowel sounds. No distension. No rebound or guarding. Back: No CVA tenderness. Skin: Warm and dry. Neuro: Alert and oriented X 3. I reviewed EMS notes. I reviewed all diagnostic test results. My interpretation of the EKG is sinus rhythm with PACs and nonspecific ST-T changes. My interpretation of the chest x-ray is NAD. My review of the US gallbladder report is cholelithiasis. Blood tests unremarkable. At this point, diagnoses include gallstones and mild bronchospasm. Treatment here included Duoneb, Pepcid, Solumedrol, and Protonix. Significant improvement noted. Recommended more outpatient management. Based on my best medical judgment, made decision no further evaluation or treatment indicated at this time. Patient understands and agrees to the discharge instructions customized and printed, see below. Discharge Instructions from Dr. Gonzalez: 1. After evaluation, your symptoms are due to gallstone(s). You need gallbladder to help digest fatty foods. 2. So to prevent future attacks, avoid all fatty and oily and greasy and buttery and dairy foods. This usually means take out and fast food restaurants. 3. Zofran for nausea/vomiting. Tylenol with codeine for severe pain. 4. See a private doctor on 10/05/2024 for recheck and further care. Ask to review all test results and official radiology reports, to make sure you receive all necessary follow-ups and monitoring. Ask for help seeing a general surgeon to discuss elective surgery. 5. Seek immediate medical care with intolerable pain, fever, or with any concerns. Phoenix Gonzalez MD Related Data Previous Rx's ?Medication ?Instructions ?Recorded famotidine 40 mg tablet (Pepcid) 40 mg PO QDAY #30 tab s 04/27/20 albuterol sulfate 90 mcg/actuation 1 inh inhalation QI D PRN shortness 04/20/23 aerosol inhaler of breath or wheezing #8.5 g ashli aspirin 81 mg tablet,delayed 81 mg PO QDAY #30 tabs release atorvastatin 80 mg tablet 80 mg PO QPM #30 tabs ticagrelor 90 mg tablet (Brilinta) 90 mg PO BID 1 nelsy h #60 tabs 03/18/24 albuterol sulfate 90 mcg/actuation 2 puff inhalation Q 6H PRN 04/06/24 aerosol inhaler shortness of breath or wheez ing #8.5 grams acetaminophen 300 mg-codeine 30 mg 2 tab PO Q8H PRN pa in #20 tabs 10/04/24 tablet ondansetron 4 mg disintegrating 4 mg PO TID PRN nausea and 10/04/24 tablet vomiting 30 days #10 tabs Allergies Allergy/AdvReac Type Severity Reaction Status Date / Time No Known Allergies Allergy Verified 05/18/24 14:20 Review of Systems Review of Systems Systems Reviewed: All systems reviewed, normal except as documented Past Medical History Past Medical History CARDIAC: Positive Cardiac Disorders; Negative Congestive Heart Failure RESPIRATORY: Positive Chronic Obstructive Pulmonary Disease (COPD); Negative Asthma GASTROINTESTINAL: Positive Ulcer and Gastroesophageal Reflux Disease GENITOURINARY: Negative Renal Disease ENT: Positive Cataracts ENDOCRINE: Negative Diabetes Mellitus Type 1 or Diabetes Mellitus Type 2 HEMATOLOGIC: Negative Sickle Cell Disease Social History SMOKING STATUS: Former smoker SECOND HAND EXPOSURE: Yes SUBSTANCE USE: does not use ED Exam Narrative Physical exam: As noted in HPI. Course Quality Measures none Orders Category Date Time Status Bedside COVID-19 Antigen Test NOW Care 10/04/24 20:42 Active Bedside Influenza A&B Antigen Test NOW Care 10/04/24 20:[address] Screening NOW Care 10/04/24 20:44 Active EKG (ED ONLY) *Do not use* NOW Care 10/04/24 20:43 Completed Saline [Insert IV] NOW Care 10/04/24 20:42 Active Straight [In and Out Catheter] X1 Care 10/04/24 20:[address] abdomen pelvis w con Stat Exams 10/04/24 20:[address] angio chest Stat Exams 10/04/24 20:44 Stop Req EKG (ED Only) Stat Exams 10/04/24 20:43 Draft US gall bladder Stat Exams 10/04/24 20:44 Completed XR chest 1V portable Stat Exams 10/04/24 20:43 Completed ABG [Arterial Blood Gas] Stat Lab 10/04/24 21:35 Completed Alcohol, Blood Medical Stat Lab 10/04/24 20:50 Completed Amylase Stat Lab 10/04/24 20:50 Completed BNP [B-Type Natriuretic Peptide] Stat Lab 10/04/24 20:50 Completed Bilirubin,Direct Stat Lab 10/04/24 20:50 Completed Blood Culture (Lab) Stat Lab 10/04/24 21:04 Received CBC Stat Lab 10/04/24 20:50 Completed CMP [Comprehensive Metabolic Panel] Stat Lab 10/04/24 20:50 Completed CRP [C-Reactive Protein] Stat Lab 10/04/24 20:50 Completed D-Dimer Stat Lab 10/04/24 20:50 Completed Drug Screen,Urine Stat Lab 10/04/24 20:44 Ordered ESR [Sed Rate (ESR)] Stat Lab 10/04/24 20:50 Completed Free T4 (Free Thyroxine) Stat Lab 10/04/24 20:50 Completed Lactate (Lactic Acid) Stat Lab 10/04/24 20:50 Completed Lipase Stat Lab 10/04/24 20:50 Completed Magnesium Stat Lab 10/04/24 20:50 Completed PT [Prothrombin Time with INR] Stat Lab 10/04/24 20:50 Received PTT [Partial Thromboplastin Time] Stat Lab 10/04/24 20:50 Received Procalcitonin Stat Lab 10/04/24 20:50 Completed TSH [Thyroid Stimulating Hormone] Stat Lab 10/04/24 20:50 Completed Troponin I Stat Lab 10/04/24 20:50 Completed UA, C/S IF [Urinalysis, C/S if Indicated] Stat Lab 10/04/24 20:45 Ordered Albuterol/Ipratr Rt Mona [Duoneb Rt Mona] Med 10/04/24 20:42 Discontinued 3 ml INH X1 ONE Famotidine Inj [Pepcid Inj] Med 10/04/24 20:42 Discontinued 20 mg IVP X1 ONE MethylPREDNISolone.* [SoluMEDROL Inj] Med 10/04/24 20:42 Discontinued 125 mg IVP X1 ONE Pantoprazole Inj [Protonix Inj] Med 10/04/24 20:42 Discontinued 40 mg IVP X1 ONE Vital Signs Vital signs: Vital Signs Temperature 98.4 F 10/04/24 19:58 Pulse Rate 85 10/04/24 19:58 Respiratory Rate 18 10/04/24 19:58 Blood Pressure 141/74 H 10/04/24 19:58 Pulse Oximetry (%) 93 L 10/04/24 19:58 Oxygen Delivery Method Room Air 10/04/24 19:58 Chest Pain MDM Narrative MDM Narrative:: Scribe Attestation: 10/04/24 - Shanel Beckham am scribing for and in the presence of Dr. Gonzalez. 73yo male with a history of COPD, [place] s/p stent placement BIBA from home presents to the ED for a chief complaint of chest pain. Patient states he started having nausea and vomiting this morning. Patient states he started having an upset stomach and has developed chest pain over the last few hours, so he had his friend call 911 to come in for evaluation. No fever or chills. No other complaints reported. Patient data External records reviewed:: [facility] previous records (Per chart review, patient was seen here on 09/10/24 for COPD.) Clinical information provided by:: patient Social determinants that could affect healthcare access:: none Patient has the following chronic illnesses:: COPD, [place] s/p stent placement How is presenting disease/condition affected by chronic disease/condition?: uneffected by Evaluation data The following diagnostics were reviewed and interpreted by me:: lab results, radiology exam(s) and EKG tracing(s) (My interpretation of the EKG is: Sinus rhythm (90 bpm) with PACs and nonspecific ST-T changes. Phoenix Gonzalez MD) Lab and/or radiology exams considered but not ordered:: none Interpretation Summary: I reviewed all diagnostic test results. My interpretation of the EKG is sinus rhythm with PACs and nonspecific ST-T changes. My interpretation of the chest x-ray is NAD. My review of the US gallbladder report is cholelithiasis. Blood tests unremarkable. Medications / Prescriptions Medications or Prescriptions considered but not ordered:: none Medication administrations:: Medication Administration History Discontinued Medications Albuterol/Ipratropium (Albuterol/Ipratropium (Duoneb) Rt Mona 3 Ml Nebu) 3 ml INH X1 ONE Stop: 10/04/24 20:43 Last Admin: 10/04/24 21:30 Dose: 3 ml Documented By: RADHA Famotidine (Famotidine Inj 10 Mg/Ml Vial 2 Ml) 20 mg IVP X1 ONE Stop: 10/04/24 20:43 Last Admin: 10/04/24 21:00 Dose: 20 mg Documented By: RIVER Methylprednisolone Sodium Succinate (Methylprednisolone Sod Succ 62.5 Mg/Ml 2ml Vial) 125 mg IVP X1 ONE Stop: 10/04/24 20:43 Last Admin: 10/04/24 21:00 Dose: 125 mg Documented By: RIVER Pantoprazole Sodium (Pantoprazole Inj 40 Mg Vial) 40 mg IVP X1 ONE Stop: 10/04/24 20:43 Last Admin: 10/04/24 21:00 Dose: 40 mg Documented By: RIVER Duoneb, Pepcid, Solumedrol, Protonix Consultations Consultation(s) initiated? (list below): No Diagnosis Chest Pain Differential Diagnosis: pneumothorax, stable angina, unstable angina pectoris, atypical chest pain, st elevation myocardial infarction, costochondritis, biliary colic and other (GERD, PUD, gastritis) Most likely diagnosis given after review of the tests above:: Gallstones Admission Indicated Admission indicated?: not indicated Explain why admission is indicated or not indicated:: With no severe illness, there was no indication for admission. Admission Request Was there a request for admission?: No Disposition Plan Disposition Plan: Discharge Discharge Attestation Discharge Attestation: The patient and all family members were given an opportunity to ask questions and understood the discharge instructions. Discharge instructions specifically effects, indications for sooner follow up or return to the emergency department, and the expected course of current diagnosis. Patient condition: Stable Discharge Plan Plan Patient Disposition: HOME (Self Care) Prescriptions/Referrals Prescriptions/Med Rec: New acetaminophen-codeine 300-30 mg tablet 2 tab PO Q8H MDD 6 PRN (Reason: pain) Qty: 20 0RF ondansetron 4 mg tablet,disintegrating 4 mg PO TID PRN (Reason: nausea and vomiting) 30 Days Qty: 10 0RF No Action famotidine [Pepcid] 40 mg tablet 40 mg PO QDAY Qty: 30 0RF aspirin 81 mg Tablet,Delayed Release (Dr/Ec) 81 mg PO QDAY Qty: 30 1RF Brilinta 90 mg Tablet 90 mg PO BID 30 Days Qty: 60 1RF atorvastatin 80 mg tablet 80 mg PO QPM Qty: 30 3RF albuterol sulfate 90 mcg/actuation HFA aerosol inhaler 2 puff inhalation Q6H PRN (Reason: shortness of breath or wheezing) Qty: 8.5 0RF albuterol sulfate 90 mcg/actuation HFA aerosol inhaler 1 inh inhalation QID PRN (Reason: shortness of breath or wheezing) Qty: 8.5 0RF Rx Instructions: Dispense with spacer and teaching Referrals: No Primary/Family,Physician [Referring Provider] - In 1 week Problem List Clinical Impression: Gallstones Patient/Caregiver Discharge Instructions Discharge Activity: activity as tolerated Education Materials: ED Gallstones with Biliary Colic Additional Instructions: Discharge Instructions from Dr. Gonzalez: 1. After evaluation, your symptoms are due to gallstone(s).? You need gallbladder to help digest fatty foods. 2. So to prevent future attacks, avoid all fatty and oily and greasy and buttery and dairy foods.? This usually means take out and fast food restaurants. 3. Zofran for nausea/vomiting.? Tylenol with codeine for severe pain.?? 4. See a private doctor on 10/05/2024 for recheck and further care. Ask to review all test results and official radiology reports, to make sure you receive all necessary follow-ups and monitoring. Ask for help seeing a general surgeon to discuss elective surgery. 5. Seek immediate medical care with intolerable pain, fever, or with any concerns. Print Language: Nicaraguan Stand Alone Forms: [employer] Award Info., Patient Portal Info Letter
--- NOTE | 2024-10-04 20:43 | EKG_ITS ---
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
--- NOTE | 2024-10-04 20:43 | XR_ITS ---
Examination: AP chest single view TECHNIQUE: AP portable upright chest single view Date and time: October 04, 2024, 2049 hours, comparison September 10, 2024 INDICATION: Vomiting shortness of breath chest pain and weakness today. FINDINGS: Normal heart size Accentuation of bronchovascular markings. No lumbar pneumonia. No pulmonary edema Suspicious for 6 mm pulmonary nodule left upper lobe IMPRESSION: Rhonchi this pattern Recommend AP lordotic chest follow-up to exclude 6 mm pulmonary nodule left upper lobe
--- NOTE | 2024-10-04 20:44 | XR_ITS ---
Examination: Abdomen sonogram, Limited Date and time of exam: October 04, 2024 2106 hours INDICATIONS: Onset of right upper abdominal pain today Technique: Real-time blackwell scale transabdominal sonographic images of the upper abdomen obtained. Findings: 10 mm gallstone Gallbladder wall 0.50 cm no edema Common bile duct 0.4 cm, pancreatic head 2.5 cm Liver 14.8 cm 13 mm left lobe liver cyst Normal hepatopedal portal venous flow Patent IVC IMPRESSION: Cholelithiasis Thickened gallbladder wall consider HIDA scan or MRCP follow-up to exclude cholecystitis
[2024-10-04] MEDS: FAMOTIDINE INJ 10 MG/ML VIAL 2 ML 20 MG IVP (21:00)
[2024-10-04] MEDS: PANTOPRAZOLE INJ 40 MG VIAL IVP (21:00)
[2024-10-04] MEDS: MethylPREDNISolone SOD SUCC 62.5 MG/ML 2ML VIAL 125 MG IVP (21:00)
[2024-10-04 21:07] VITALS: BP 132/71; PULSE 86; RESP 20; O2SAT 95
[2024-10-04 21:12] LABS: Lactate (Lactic Acid) 1.4 mMol/L (0.4-2.0)
[2024-10-04 21:23] LABS: Basophils % (Auto) 0 % (0-2.5); Eosinophils # (Auto) 0.1 Thou/mm3 (0.0-0.5); Eosinophils % (Auto) 1 % (0-10); Hemoglobin 10.7 g/dL (13.5-16.0); Immature Granulocytes % (Auto) 0 % (0-0); Immature Granulocytes Auto 0.01 Thou/mm3 (0.00-0.00); Lymphocytes # (Auto) 0.7 Thou/mm3 (1.0-4.8); Lymphocytes % (Auto) 10 % (10-50); Mean Corpuscular HGB Conc 31.5 g/dl (31.0-37.0); Mean Corpuscular Hemoglobin 24.4 pg (25.0-35.0); Mean Corpuscular Volume 77 fL (80-100); Monocytes # (Auto) 0.3 Thou/mm3 (0.0-0.8); Monocytes % (Auto) 4 % (0-12); Neutrophils # (Auto) 6.2 Thou/mm3 (1.8-7.7); Neutrophils % (Auto) 86 % (37-80); Nucleated Red Blood Cell % 0 /100 WBC (0); Platelet Count 210 Thou/mm3 (140-440); RDW Standard Deviation 50.6 fL (35.1-43.9); Red Blood Count 4.39 Miln/mm3 (4.50-5.90); White Blood Count 7.2 Thou/mm3 (3.8-10.6)
[2024-10-04 21:30] VITALS: PULSE 93; RESP 20; O2SAT 98
[2024-10-04] MEDS: ALBUTEROL/IPRATROPIUM (Duoneb) RT SOL 3 ML NEBU INH (21:30)
[2024-10-04 21:33] VITALS: BP 132/71; PULSE 88; RESP 19; TEMP 36.8; O2SAT 98
[2024-10-04 21:42] LABS: Base Excess -2 (-3-3); HCO3 22 mEq/L (20-26); Inspired Oxygen, FIO2 21 %; O2 Saturation 100 % (91-98); PCO2 33 mmHg (32.0-48.0); PO2 146 mmHg (83-108); pH, Arterial 7.42 (7.35-7.45)
[2024-10-04 21:44] LABS: Allen Test Performed/OK; Puncture Site Right Radial
[2024-10-04 21:48] LABS: Alanine Aminotransferase 18 U/L (10-49); Albumin, Serum 3.7 gm/dL (3.4-4.8); Albumin/Globulin Ratio 1.7 (1.2-2.2); Alcohol, Blood Medical < 3.0 mg/dL (0-10.0); Alkaline Phosphatase 111 U/L (46-116); Anion Gap 10 (7-16); Aspartate Amino Transferase 23 U/L (0-34); BUN/Creatinine Ratio 21 Ratio (12-20); Bilirubin,Direct 0.3 mg/dL (0.0-0.3); Bilirubin,Total 0.8 mg/dL (0.3-1.2); Blood Urea Nitrogen 19 mg/dL (9-23); Calcium 8.5 mg/dL (8.3-10.6); Calcium (Corrected) 8.7 mg/dL (8.5-10.1); Carbon Dioxide 22.5 mMol/L (20.0-31.0); Chloride 105 mMol/L (98-107); Creatinine (Component) 0.9 mg/dL (0.6-1.3); Estimated Creatinine Clearance 66.6 mL/min (>60); Free T4 (Free Thyroxine) 1.18 ng/dL (0.89-1.76); Globulin 2.2 gm/dL (2.3-3.5); Glucose 107 mg/dL (74-106); Magnesium 1.6 mg/dL (1.6-2.6); Osmolality,Calculated 276 (275-295); Potassium 4.5 mMol/L (3.4-5.1); Procalcitonin 0.11 ng/ml (0.0-0.49); Sodium 137 mMol/L (136-145); Thyroid Stimulating Hormone 0.51 uIU/mL (0.55-4.78); Total Protein 5.9 gm/dL (5.7-8.2); Troponin I < 0.020 ng/mL (0.0-0.045); eGFR > 60 See Note
[2024-10-04 21:50] LABS: B-Type Natriuretic Peptide 297 pg/mL (0-100)
[2024-10-04 21:59] LABS: D-Dimer 459 ng/mL (<600)
[2024-10-04 22:09] LABS: Amylase 89 U/L (30-118); C-Reactive Protein 1.1 mg/dL (0.0-0.9); Lipase 40 U/L (12-53)
[2024-10-04 22:10] LABS: Sed Rate (ESR) 45 mm/hr (0-20)
[2024-10-04 22:19] LABS: INR 1.1 (0.9-1.3); Partial Thromboplastin Time 23.5 Seconds (22.0-36.0); Prothrombin Time 12.2 Seconds (9.0-12.2)
[2024-10-04 22:42] VITALS: BP 134/79; PULSE 98; RESP 14; TEMP 36.5; O2SAT 94
== END 2024-10-04 22:43 | disposition home or self-care (01) ==
PROVIDERS: Emergency Provider Emergency Medicine; PCP Family Medicine
DX: K80.20 Calculus of gallbladder without cholecystitis without obstruction (principal); J44.9 Chronic obstructive pulmonary disease, unspecified; I25.2 Old myocardial infarction; R07.9 Chest pain, unspecified
CPT/HCPCS: 36415; 36600; 71045; 76705; 80053; 80307; 80320; 81001; 82150; 82248; 82803; 83605; 83690; 83735; 83880; 84145; 84439; 84443; 84484; 85025; 85379; 85610; 85652; 85730; 86140; 87040; 87400; 87811; 93005; 94640; 96374; 96375; 99284; A9270; J2470; J2919; J3490; G0480

== ENCOUNTER 2024-11-25 19:33 | Inpatient (IN) | payer MEDICARE, MEDICAID, SELFPAY ==
[2024-11-25 19:38] VITALS: BP 134/72; PULSE 96; RESP 28; TEMP 36.8; O2SAT 90
[2024-11-25 19:43] VITALS: BMI 20.9
--- NOTE | 2024-11-25 19:45 | XR_ITS ---
Examination: AP chest single view TECHNIQUE: AP portable upright chest single view Date and time: November 251957 hours INDICATIONS: Shortness of breath today. FINDINGS: Mild CHF Mild enlargement cardiac contour and pulmonary vascular congestion and perihilar basilar edema Prominent osteopenia IMPRESSION: Mild CHF
--- NOTE | 2024-11-25 19:58 | PD.EDSOB ---
ED SOB =RME/HPI General Chief Complaint: Shortness of Breath/Dyspnea Stated Complaint: SOB Time Seen by Provider: 11/25/24 19:45 Source: patient Arrival date/time: 11/25/24 19:33 Mode of arrival: ambulatory Limitations: no limitations RME / HPI RME / HPI Narrative: Patient is a 74-year-old male with a history of COPD, acid reflux, hyperlipidemia, and prior ACS. He states he is here today with a 1 to 2-day history of neck pain. He has chronic shortness of breath but states that he has had no acute changes. Patient does not use any oxygen at home and was noted to have oxygen saturations at 87% and percent on room air while at rest in the exam room. Related Data Previous Rx's ?Medication ?Instructions ?Recorded famotidine 40 mg tablet (Pepcid) 40 mg PO QDAY #30 tabs 04/27/20 albuterol sulfate 90 mcg/actuation 1 inh inhalation QID PRN shortness 04/20/23 aerosol inhaler of breath or wheezing #8.5 grams aspirin 81 mg tablet,delayed 81 mg PO QDAY #30 tabs 03/18/24 release atorvastatin 80 mg tablet 80 mg PO QPM #30 tabs 03/18/24 ticagrelor 90 mg tablet (Brilinta) 90 mg PO BID 1 month #60 tabs 03/18/24 albuterol sulfate 90 mcg/actuation 2 puff inhalation Q6H PRN 04/06/24 aerosol inhaler shortness of breath or wheezing #8.5 grams acetaminophen 300 mg-codeine 30 mg 2 tab PO Q8H PRN pain #20 tabs 10/04/24 tablet Allergies Allergy/AdvReac Type Severity Reaction Status Date / Time No Known Allergies Allergy Verified 11/25/24 19:34 Review of Systems Review of Systems Systems Reviewed: All systems reviewed, normal except as documented ED Exam General Limitations: Present no limitations General appearance: Present alert and anxious Head Head exam: Present atraumatic Eye Eye exam: Present normal appearance, PERRL and EOMI ENT ENT exam: Present normal exam, normal oropharynx and mucous membranes moist Neck Neck exam: Present normal inspection, full ROM and trachea midline Chest Chest inspection: Present normal inspection and symmetric chest wall rise Respiratory Respiratory exam: Present normal lung sounds bilaterally; Absent respiratory distress, wheezes, stridor, accessory muscle use or prolonged expiratory phase Cardiovascular Cardiovascular exam: Present regular rate, normal rhythm and normal heart sounds Abdominal Exam Abdominal exam: Present soft; Absent distention or tenderness Extremities Exam Extremities exam: Present normal inspection and full ROM Back Exam Back exam: Present normal inspection and full ROM Neurological Exam Neurological exam: Present alert and oriented X3 Psychiatric Psychiatric exam: Present anxious Skin Skin exam: Present warm, dry, intact and normal color Course Quality Measures none Orders Category Date Time Status Bedside COVID-19 Antigen Test NOW Care 11/25/24 21:44 Active COVID-19 Screening Questionnaire NOW Care 11/25/24 21:16 Active Decision to Admit X1 Care 11/25/24 21:16 Completed XR chest 1V Stat Exams 11/25/24 19:45 Completed BNP [B-Type Natriuretic Peptide] Stat Lab 11/25/24 19:53 Completed CBC Stat Lab 11/25/24 19:53 Completed CMP [Comprehensive Metabolic Panel] Stat Lab 11/25/24 19:53 Completed Drug Screen,Urine Stat Lab 11/25/24 21:53 Completed Mag [Magnesium] Stat Lab 11/25/24 19:53 Completed Troponin I Stat Lab 11/25/24 19:53 Completed UA, C/S IF [Urinalysis, C/S if Indicated] Stat Lab 11/25/24 21:53 Completed VBG [Venous Blood Gas] Stat Lab 11/25/24 20:26 Completed Furosemide [Lasix Inj] Med 11/25/24 21:16 Discontinued 40 mg IVP X1 ONE Vital Signs Vital signs: Vital Signs Temperature 98.3 F 11/25/24 19:38 Pulse Rate 96 11/25/24 19:38 Respiratory Rate 28 H 11/25/24 19:38 Blood Pressure 134/72 H 11/25/24 19:38 Pulse Oximetry (%) 90 L 11/25/24 19:38 Oxygen Delivery Method Room Air 11/25/24 19:38 Shortness of Breath / Dyspnea MDM Narrative MDM Narrative:: Patient is a 74-year-old male with a history of COPD, acid reflux, hyperlipidemia, and prior ACS. He states he is here today with a 1 to 2-day history of neck pain. He has chronic shortness of breath but states that he has had no acute changes. Patient does not use any oxygen at home and was noted to have oxygen saturations at 87% and percent on room air while at rest in the exam room. Patient data External records reviewed:: [facility] previous records and None Clinical information provided by:: patient Social determinants that could affect healthcare access:: none Patient has the following chronic illnesses:: COPD, diabetes, How is presenting disease/condition affected by chronic disease/condition?: uneffected by Evaluation data The following diagnostics were reviewed and interpreted by me:: lab results (Patient has no leukocytosis. He has anemia with a hemoglobin of 9.2 and hematocrit 29.9. He has glucose is elevated at 132, BNP is 825. Urinalysis is unremarkable. Urine drug screen is positive for amphetamines.) Lab and/or radiology exams considered but not ordered:: n/a Interpretation Summary: CHF Medications / Prescriptions Medications or Prescriptions considered but not ordered:: n/a Medication administrations:: Medication Administration History Acetaminophen (Acetaminophen 325 Mg Tablet) 650 mg PO Q6H PRN PRN Reason: PAIN SCALE 1-3 (mild Stop: 12/25/24 21:59 Albuterol/Ipratropium (Albuterol/Ipratropium (Duoneb) Rt Mona 3 Ml Nebu) 3 ml INH Q6HRRT KANNAN Stop: 12/26/24 00:59 Atorvastatin Calcium (Atorvastatin Calcium 20 Mg Tablet) 40 mg PO HS KANNAN Stop: 12/26/24 20:59 Furosemide (Furosemide Inj 10 Mg/Ml 4ml Vial) 40 mg IVP BIDD KANNAN Stop: 12/26/24 05:59 Heparin Sodium (Porcine) (Heparin Sod Inj 5000 Unit/Ml Vial) 5,000 unit SC Q12HR KANNAN Stop: 12/10/24 08:59 Magnesium Sulfate (Magnesium Sulfate Ivpb) 4 gm in 50 mls @ 12.5 mls/hr IV X1 ONE Stop: 11/26/24 02:05 Levalbuterol HCl (Levalbuterol Rt 0.63 Mg/3 Ml Nebu) 0.63 mg INH Q8HR PRN PRN Reason: WHEEZING Stop: 12/25/24 22:30 Lisinopril (Lisinopril 2.5 Mg Tablet) 10 mg PO QDAY KANNAN Stop: 12/26/24 08:59 Ondansetron HCl (Ondansetron Inj 2 Mg/Ml Inj 2 Ml) 4 mg IVP Q6H PRN; Protocol PRN Reason: NAUSEA OR VOMITING Stop: 12/25/24 21:58 Sennosides (Senna Tablet) 1 tab PO QDAY PRN; Protocol PRN Reason: constipation Stop: 12/25/24 21:59 Ticagrelor (Ticagrelor 90 Mg Tablet) 90 mg PO BID KANNAN Stop: 12/26/24 08:59 Discontinued Medications Furosemide (Furosemide Inj 10 Mg/Ml Vial 2 Ml) 40 mg IVP X1 ONE Stop: 11/25/24 21:17 Last Admin: 11/25/24 21:51 Dose: 40 mg Documented By: NADINE Potassium Chloride (Potassium Chloride 20 Meq Tabcr) 40 meq PO X1 ONE Stop: 11/25/24 22:06 see above Consultations Consultation(s) initiated? (list below): No Diagnosis Shortness of Breath Differential Diagnosis: acute exacerbation of chronic obstructive airways disease, congestive heart failure and community acquired pneumonia Most likely diagnosis given after review of the tests above:: chf, methamphetamine abuse Admission Indicated Admission indicated?: indicated Admission Request Was there a request for admission?: Yes Admission Attestation Admission request attestation: Discussed case with [] from Hospitalist service regarding admission. Discussed patients ED course, exam findings, labs, and radiology results. The Hospitalist [agrees,declines] to accept the patient for admission. Disposition Plan Disposition Plan: Admit Discharge Plan Plan Patient Disposition: Admit Acute Care w/in Hospital Patient condition on transfer: Stable Problem List Clinical Impression: CHF (congestive heart failure), Methamphetamine abuse
[2024-11-25 20:05] LABS: Basophils # (Auto) 0.0 Thou/mm3 (0.0-0.2); Basophils % (Auto) 1 % (0-2.5); Eosinophils # (Auto) 0.1 Thou/mm3 (0.0-0.5); Eosinophils % (Auto) 1 % (0-10); Hematocrit 29.9 % (41.0-53.0); Hemoglobin 9.2 g/dL (13.5-16.0); Immature Granulocytes Auto 0.02 Thou/mm3 (0.00-0.00); Lymphocytes # (Auto) 1.3 Thou/mm3 (1.0-4.8); Lymphocytes % (Auto) 17 % (10-50); Mean Corpuscular HGB Conc 30.8 g/dl (31.0-37.0); Mean Corpuscular Hemoglobin 23.8 pg (25.0-35.0); Mean Corpuscular Volume 78 fL (80-100); Monocytes # (Auto) 0.6 Thou/mm3 (0.0-0.8); Monocytes % (Auto) 8 % (0-12); Neutrophils # (Auto) 5.4 Thou/mm3 (1.8-7.7); Neutrophils % (Auto) 73 % (37-80); Nucleated Red Blood Cell # 0.00 Thou/mm3 (0.00-0.00); Nucleated Red Blood Cell % 0 /100 WBC (0); Platelet Count 285 Thou/mm3 (140-440); RDW Standard Deviation 49.6 fL (35.1-43.9); Red Blood Count 3.86 Miln/mm3 (4.50-5.90); White Blood Count 7.4 Thou/mm3 (3.8-10.6)
[2024-11-25 20:26] LABS: B-Type Natriuretic Peptide 825 pg/mL (0-100)
[2024-11-25 20:36] LABS: Base Excess, Venous -1 (-3-3); O2 Saturation, Venous 60 % (96-97); PCO2, Venous 35 mmHg (36-56); PO2, Venous 34 mmHg (15-58); pH, Venous 7.43 (7.33-7.66)
[2024-11-25 20:36] LABS: Alanine Aminotransferase 21 U/L (10-49); Albumin, Serum 3.8 gm/dL (3.4-4.8); Albumin/Globulin Ratio 1.4 (1.2-2.2); Alkaline Phosphatase 118 U/L (46-116); Anion Gap 13 (7-16); Aspartate Amino Transferase 24 U/L (0-34); BUN/Creatinine Ratio 13 Ratio (12-20); Bilirubin,Total 0.6 mg/dL (0.3-1.2); Blood Urea Nitrogen 13 mg/dL (9-23); Calcium 9.3 mg/dL (8.3-10.6); Calcium (Corrected) 9.5 mg/dL (8.5-10.1); Carbon Dioxide 20.5 mMol/L (20.0-31.0); Chloride 111 mMol/L (98-107); Creatinine (Component) 1.0 mg/dL (0.6-1.3); Estimated Creatinine Clearance 60.9 mL/min (>60); Globulin 2.7 gm/dL (2.3-3.5); Glucose 132 mg/dL (74-106); Magnesium 1.6 mg/dL (1.6-2.6); Osmolality,Calculated 288 (275-295); Potassium 3.4 mMol/L (3.4-5.1); Sodium 144 mMol/L (136-145); Total Protein 6.5 gm/dL (5.7-8.2); Troponin I 0.027 ng/mL (0.0-0.045); eGFR > 60 See Note
[2024-11-25 21:51] VITALS: BP 150/99; PULSE 87
[2024-11-25] MEDS: FUROSEMIDE INJ 10 MG/ML VIAL 2 ML 40 MG IVP (21:51)
--- NOTE | 2024-11-25 22:01 | ECHO_ITS ---
Transthoracic Echo Report Ht (in): Wt (lb): 146 Exam Location: Echo Lab Status: Emergency Rib Cloth Knitter: Samantha Harkins Indications: Procedure Performed: BP: 148 / 92 HR: 87 Technical Quality: Technically difficult study MEASUREMENTS (Male / Female) Normal Values 2D ECHO LV Diastolic Diameter PLAX 5.6 cm 4.2 - 5.9 / 3.9 - 5.3 cm LV Systolic Diameter PLAX 4.6 cm IVS Diastolic Thickness 0.7 cm 0.6 - 1.0 / 0.6 - 0.9 cm LVPW Diastolic Thickness 1.1 cm 0.6 - 1.0 / 0.6 - 0.9 cm LV Relative Wall Thickness 0.3 LVOT Diameter 1.7 cm Aortic Root Diameter 3.0 cm LA Systolic Diameter LX 3.4 cm 3.0 - 4.0 / 2.7 - 3.8 cm LV Ejection Fraction MOD BP 34.8 % >= 55 % LV Ejection Fraction MOD 4C 34.2 % LV Ejection Fraction 4C AL 35.0 % LV Ejection Fraction MOD 2C 40.0 % LV Ejection Fraction 2C AL 41.3 % M-MODE Aortic Root Diameter MM 3.0 cm LA Systolic Diameter MM 3.3 cm LA Ao Ratio MM 1.1 AV Cusp Separation MM 1.6 cm DOPPLER AV Peak Velocity 83.2 cm/s AV Peak Gradient 2.8 mmHg AV Mean Gradient 2.0 mmHg AV Velocity Time Integral 17.9 cm AI Peak Velocity 164.0 cm/s AI Peak Gradient 10.8 mmHg AI Pressure Half Time 1178.0 ms LVOT Peak Velocity 62.1 cm/s LVOT Peak Gradient 1.5 mmHg LVOT Velocity Time Integral 15.5 cm AV Area Cont Eq vti 2.0 cm? AV Area Cont Eq pk 1.7 cm? MV Area PHT 4.6 cm? MR Peak Velocity 456.0 cm/s MR Peak Gradient 83.2 mmHg Mitral E Point Velocity 77.6 cm/s Mitral A Point Velocity 74.7 cm/s Mitral E to A Ratio 1.0 LV E' Lateral Velocity 6.9 cm/s Mitral E to LV E' Lateral Ratio 11.3 LV E' Septal Velocity 6.0 cm/s Mitral E to LV E' Septal Ratio 13.0 TR Peak Velocity 253.7 cm/s TR Peak Gradient 25.7 mmHg FINDINGS Left Ventricle Left ventricle is mildly dilated with evidence severe global hypokinesis left ventricle ejection fraction approximately 30%. Right Ventricle The right ventricular size is moderately increased with normal systolic function. The estimated right ventricular systolic pressure, 48 mmHg. RAP 15. Left Atrium The left atrium is normal by two-dimensional, color flow and Doppler imaging with no structural abnormalities, no thrombus formation present. Right Atrium The size of the right atrial cavity is mildly to moderately enlarged. Atrial Septum The interatrial septum appears normal with no evidence of a shunt. Aorta The aorta is normal by two-dimensional, color flow and Doppler interrogation. Mitral Valve The mitral valve is normal by two-dimensional, color flow and Doppler interrogation. Moderate mitral regurgitation. Aortic Valve The aortic valve is trileaflet and normal by two-dimensional, color flow and Doppler interrogation. Mild aortic valve regurgitation. Tricuspid Valve The tricuspid valve is normal by two-dimensional, color flow and Doppler interrogation. There is mild tricuspid valve regurgitation. Pulmonic Valve The pulmonic valve is not well visualized. There is no significant pulmonic valve regurgitation. Vessels Dilated inferior vena cava. Pericardium The pericardium is normal by two-dimensional imaging. There is no significant pericardial effusion. CONCLUSIONS Indication: CHF exacerbation Mildly dilated left ventricle with severe global hypokinesis ejection fraction 30%. RV size is moderately increased with normal systolic function. The estimated RVSP, 48 mmHg. RAP 15. Mild to moderate mitral regurgitation. Mild aortic valve regurgitation. Mild tricuspid valve regurgitation. Dilated inferior vena cava. Helene Ruffin (Electronically Signed) Final Date: 26 November 2024 17:28
[2024-11-25 22:04] LABS: Collection Type, Urine Voided
--- NOTE | 2024-11-25 22:08 | PD.RESHP ---
Documentation for date of: 11/25/24 HPI History of Present Illness Chief complaint: Shortness of breath History of present illness: 74-year-old male with past medical history of CAD status post HI revascularization on 03/2024 for occlusion of RCA COPD/asthma not on any home oxygen, hypertension presenting to the ED on 11/25 with increased shortness of breath. Patient states that for the past several weeks he has been feeling progressively short of breath but recently started feeling worse. Patient has difficulty ambulating and states that he currently lives out of his car. Patient also apparently takes care of his who has late stage dementia. Of note, patient has not been able to see a audio visual secretary since revascularization and PCP has been unable to find a audio visual secretary that will accept his insurance. Patient states that he has been taking his blood thinners as prescribed. Patient denies having any fever/chills, chest pain, palpitations but does state that he gets leg swelling from time to time. He also states he has difficulty sleeping at night due to shortness of breath while lying flat. Medical history: As stated above Surgical history: Angioplasty Allergies: NKDA Medications: Pending med rec Family history: Noncontributory Social history: Patient lives in [place], lives in car? History of cocaine use in the past, [id number] smoking history, denies any alcohol or illicit drug use currently ROS: All 12 systems assessed and the patient denies unless otherwise stated in HPI In the ED, patient presented hypertensive 134/72, heart rate 96, tachypneic respiratory rate of 28, afebrile satting initially 90 on 4 L. Pertinent lab findings included WBC 7.4, hemoglobin 9.2 with MCV of 78, ABG showed a pH of 7.43 and PCO2 of 35, BUN 13, creatinine 1.0, troponin 0.027, BNP of 825. Urinalysis was negative for any signs of infection but U tox was positive for meth. Chest x-ray showed mild enlargement of the cardiac contour along with mild CHF. Patient will be admitted for CHF exacerbation started on IV diuretics. Exam Vital Signs Temp Pulse Resp BP Pulse Ox O2 Del Method 98.3 F 87 28 H 150/99 H 90 L Room Air 11/25/24 19:38 11/25/24 21:51 11/25/24 19:38 11/25/24 21:51 11/25/24 19:38 11/25/24 19:38 Narrative Exam Physical Exam: GENERAL: Awake, answering questions appropriately, appears older than stated age and frail HEENT: NC/AT. Moist mucosa. PERRLA/EOMI. Left-sided fatty neck mass CARDIO: Heart RRR, no obvious murmurs, no JVD. PULM: No coughing but appears mildly short of breath with nasal cannula oxygen. Bilateral expiratory wheezing noted GI: Abdomen soft, NT/ND, +BS. SKIN/MSK/EXT: +2 pitting edema up to bilateral shins. No wounds/discoloration/rashes/amputations. +Pedal pulses present B/L. NEURO: Oriented x3, Moves extremities x4, no focal neurologic deficits Results: Labs 11/25/24 19:53 11/25/24 19:53 Labs: Short CBC 11/25/24 Range/Units 19:53 WBC 7.4 (3.8-10.6) Thou/mm3 Hgb 9.2 L (13.5-16.0) g/dL Hct 29.9 L (41.0-53.0) % Plt Count 285 (140-440) Thou/mm3 BMP 11/25/24 19:53 Sodium 144 Potassium 3.4 Chloride 111 H Carbon Dioxide 20.5 BUN 13 Creatinine 1.0 Glucose 132 H Calcium 9.3 Cardiac Enzymes 11/25/24 Range/Units 19:53 Troponin I 0.027 (0.0-0.045) ng/mL Liver Function 11/25/24 Range/Units 19:53 Total Bilirubin 0.6 (0.3-1.2) mg/dL AST 24 (0-34) U/L ALT 21 (10-49) U/L Alkaline Phosphatase 118 H (46-116) U/L Albumin 3.8 (3.4-4.8) gm/dL ABG Interpretation ABG results: 11/25/24 20:26 VBG pH 7.43 VBG pCO2 35 L VBG pO2 34 VBG Base Excess -1 Quality Measures Quality Measures VTE prophylaxis Advance care planning discussed with:: patient Medications Home Medications and Allergies Allergies Allergy/AdvReac Type Severity Reaction Status Date / Time No Known Allergies Allergy Verified 11/25/24 19:34 Visit Medications Acetaminophen (Acetaminophen 325 Mg Tablet) 650 mg PO Q6H PRN PRN Reason: PAIN SCALE 1-3 (mild Stop: 12/25/24 21:59 Albuterol/Ipratropium (Albuterol/Ipratropium (Duoneb) Rt Mona 3 Ml Nebu) 3 ml INH Q6HRRT KANNAN Stop: 12/26/24 00:59 Atorvastatin Calcium (Atorvastatin Calcium 20 Mg Tablet) 40 mg PO HS KANNAN Stop: 12/26/24 20:59 Furosemide (Furosemide Inj 10 Mg/Ml 4ml Vial) 40 mg IVP BIDD KANNAN Stop: 12/26/24 05:59 Heparin Sodium (Porcine) (Heparin Sod Inj 5000 Unit/Ml Vial) 5,000 unit SC Q12HR KANNAN Stop: 12/10/24 08:59 Magnesium Sulfate (Magnesium Sulfate Ivpb) 4 gm in 50 mls @ 12.5 mls/hr IV X1 ONE Stop: 11/26/24 02:05 Ondansetron HCl (Ondansetron Inj 2 Mg/Ml Inj 2 Ml) 4 mg IVP Q6H PRN; Protocol PRN Reason: NAUSEA OR VOMITING Stop: 12/25/24 21:58 Potassium Chloride (Potassium Chloride 20 Meq Tabcr) 40 meq PO X1 ONE Stop: 11/25/24 22:06 Sennosides (Senna Tablet) 1 tab PO QDAY PRN; Protocol PRN Reason: constipation Stop: 12/25/24 21:59 Ticagrelor (Ticagrelor 90 Mg Tablet) 90 mg PO BID KANNAN Stop: 12/26/24 08:59 Discontinued Medications Furosemide (Furosemide Inj 10 Mg/Ml Vial 2 Ml) 40 mg IVP X1 ONE Stop: 11/25/24 21:17 Last Admin: 11/25/24 21:51 Dose: 40 mg Assessment & Plan Plan 74-year-old male with past medical history of CAD status post HI revascularization on 03/2024 for occlusion of RCA COPD/asthma not on any home oxygen, hypertension presenting to the ED on 11/25 with increased shortness of breath will be admitted for CHF exacerbation started on IV diuretics. 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 Meth positive on urinalysis Plan: IV Lasix 40 twice daily Echo ordered Strict I's and O's Daily weight Fluid restriction 1800 mL Keep potassium greater than 4 magnesium greater than 2 Real Estate Services Coordinator on complete cessation for meth, consider social service consultation Started patient on lisinopril, await echo findings and start GDMT #CAD #History of myocardial infarction s/p stent Patient had angioplasty on 03/16/2024 which showed acute myocardial infarct of the right coronary artery 100% occlusion underwent successful thrombectomy and stent placement. On Brilinta 90mg bid and statin Denies any active chest pain at this time Trop 0.027 Plan: Continue home medications Follow-up on EKG #Neck mass, pain Patient had a left-sided fatty neck mass, possible lipoma tender to palpation Tenderness elicited with neck flexion Plan: Xray cervical spine Outpatient follow-up for biopsy; dermatology referral #COPD/asthma Patient on two home inhalers Plan: Breathing treatment scheduled and as needed Monitor oxygen demand and supply as needed SpO2 88-92 acceptable #Microcytic anemia Patient has hemoglobin of 9.2, MCV 78, no signs of active bleeding Plan: Iron panel, ferritin, reticulocyte in a.m. Follow-up hemoglobin level, transfuse if less than 7 Health Maintenance: Lines: PIV Diet: Cardiac Bowel: Senna as needed GI prophylaxis: Not needed DVT prophylaxis: Heparin subcu Dispo: IV diuretics for CHF exacerbation, echo pending Code: Full Patient seen and assessed with attending Dr. Neva Montgomery, DO PGY-2 Internal Medicine - G[facility] Attending Provider Attestation/Addendum I attest that I was physically present for the evaluation, physical examination, lab and imaging review of the patient with the residents. I discussed the case with the residents and agree with the findings and plans of care as documented above. After examination of the patient and review of the clinical data I feel that this patient needs admission to the hospital for further treatment/evaluation. Patient is a 74 years old male with past medical history of CAD, COPD/asthma, hypertension who presented to the ED with complaint of increased shortness of breath and neck pain. Patient stated that he has been having progressively worsening shortness of breath for several weeks but has become severe recently. He also has difficulty ambulating and orthopnea. In the ED, he is tachypneic with respiratory rate of 28, saturating 90% on 4 L nasal cannula. Lab results show hemoglobin of 9.2, MCV 78, BNP 825. Urine toxicology was positive for methamphetamine. Chest x-ray was done, showed vascular congestion. At bedside, noted to have small left-sided neck mass, appears similar to lipoma, mild tenderness on palpation, mild bilateral wheezing on auscultation, 2+ pitting edema bilaterally up to the shins. We will admit the patient for management of acute hypoxic respiratory failure likely secondary to CHF exacerbation. Will start him on IV Lasix, obtain echocardiography. Keep him on fluid restriction, obtain daily weights, monitor with strict input and output. Started on lisinopril, we will plan to add more GDMT based on his tolerance. Resumed Brilinta and statin for history of CAD. We will obtain cervical x-ray for neck pain. Breathing treatment as needed for COPD/asthma. We will also continue with supplemental oxygen. Ordered iron panel, ferritin and retrofibular count to evaluate for anemia, no signs of active bleeding currently. Brett Hooks MD
[2024-11-25 22:09] LABS: Amorphous Crystals,Urine Present (Absent); Bilirubin,Urine Negative (Negative); Blood,Urine Negative (Negative); Clarity,Urine Clear (Clear/Hazy); Color,Urine Yellow (Lt Yel-Yel); Culture Indicated,Urine Not Indicated; Glucose, Urine Negative (Negative); Granular Casts,Urine < 1 /hpf (0-1); Ketones,Urine Negative (Negative); Leukocyte Esterase,Urine Negative (Negative); Nitrite,Urine Negative (Negative); PH,Urine 5.5 (5.0-7.0); Protein,Urine Trace (Neg - Trace); RBC,Urine 2 /hpf (0-3); Specific Gravity,Urine 1.030 (1.001-1.035); Squamous Epithelial Cell,Urine 2 /hpf (0-5); Urobilinogen,Urine 2.0 mg/dL (0.0-1.0); WBC,Urine 3 /hpf (0-5)
[2024-11-25 22:20] LABS: Amphetamine/Methamp Scrn,U Positive (Negative); Barbiturate Screen,Urine Negative (Negative); Benzodiazepines Screen,Urine Negative (Negative); Benzoylecgonine Screen, Ur Negative (Negative); Fentanyl Screen,Urine Negative (Negative); Opiate Screen,Urine Negative (Negative); THC Screen,Urine Negative (Negative)
[2024-11-25] MEDS: Magnesium Sulfate 4 GM Ivpb 4 GM/50 ML BAG IV (22:28)
[2024-11-25 22:48] VITALS: PULSE 93; RESP 20; O2SAT 98
[2024-11-25] MEDS: LEVALBUTEROL RT 0.63 MG/3 ML NEBU INH (22:48)
[2024-11-26] VITALS (19 sets, daily range): BP systolic 117–149; BP diastolic 57–99; PULSE 75–162; RESP 17–88; TEMP 36.1–36.7; O2SAT 92–100; BMI 15.0
[2024-11-26] MEDS: ALBUTEROL/IPRATROPIUM (Duoneb) RT SOL 3 ML NEBU INH ×4 (00:24→18:38)
--- NOTE | 2024-11-26 00:39 | XR_ITS ---
Examination: Cervical spine 2 views TECHNIQUE: AP lateral cervical spine 2 views Date and time: November 26, 2024 0052 hours INDICATIONS: Neck pain today. FINDINGS: Incomplete examination, no diagnostic visualization, C6, C7 Soft tissue vascular calcification, no fracture noted IMPRESSION: Incomplete study, recommend follow-up swimmer's view to diagnostically assess all cervical vertebral bodies Significant left carotid soft tissue vascular calcification, clinical correlation advised
[2024-11-26] MEDS: FUROSEMIDE INJ 10 MG/ML 4ML VIAL 40 MG IVP ×3 (05:23→21:38)
[2024-11-26 06:03] LABS: Basophils # (Auto) 0.1 Thou/mm3 (0.0-0.2); Basophils % (Auto) 1 % (0-2.5); Eosinophils # (Auto) 0.1 Thou/mm3 (0.0-0.5); Eosinophils % (Auto) 1 % (0-10); Hematocrit 32.8 % (41.0-53.0); Hemoglobin 10.1 g/dL (13.5-16.0); Immature Granulocytes Auto 0.02 Thou/mm3 (0.00-0.00); Immature Reticulocyte Fraction 19.8 % (2.3-13.4); Lymphocytes # (Auto) 1.1 Thou/mm3 (1.0-4.8); Lymphocytes % (Auto) 14 % (10-50); Mean Corpuscular HGB Conc 30.8 g/dl (31.0-37.0); Mean Corpuscular Hemoglobin 24.0 pg (25.0-35.0); Mean Corpuscular Volume 78 fL (80-100); Monocytes # (Auto) 0.7 Thou/mm3 (0.0-0.8); Monocytes % (Auto) 9 % (0-12); Neutrophils # (Auto) 5.6 Thou/mm3 (1.8-7.7); Neutrophils % (Auto) 74 % (37-80); Nucleated Red Blood Cell # 0.00 Thou/mm3 (0.00-0.00); Nucleated Red Blood Cell % 0 /100 WBC (0); Platelet Count 293 Thou/mm3 (140-440); RDW Standard Deviation 50.2 fL (35.1-43.9); Red Blood Count 4.21 Miln/mm3 (4.50-5.90); Reticulocyte % (Auto) 1.4 % (0.5-1.5); Reticulocyte Absolute Auto 57.3 Biln/L (25.0-75.0); Reticulocyte Hgb Content 24.5 pg (28.0-35.0); White Blood Count 7.6 Thou/mm3 (3.8-10.6)
[2024-11-26 06:30] LABS: Alanine Aminotransferase 21 U/L (10-49); Albumin, Serum 3.7 gm/dL (3.4-4.8); Albumin/Globulin Ratio 1.2 (1.2-2.2); Alkaline Phosphatase 125 U/L (46-116); Anion Gap 13 (7-16); Aspartate Amino Transferase 24 U/L (0-34); BUN/Creatinine Ratio 12 Ratio (12-20); Bilirubin,Total 0.6 mg/dL (0.3-1.2); Blood Urea Nitrogen 12 mg/dL (9-23); Calcium 8.5 mg/dL (8.3-10.6); Calcium (Corrected) 8.7 mg/dL (8.5-10.1); Carbon Dioxide 24.8 mMol/L (20.0-31.0); Cardiac Risk Estimate 2.5 RATIO (4.0-6.7); Chloride 108 mMol/L (98-107); Cholesterol 86 mg/dL (132-200); Creatinine (Component) 1.0 mg/dL (0.6-1.3); Estimated Creatinine Clearance 60.9 mL/min (>60); Free T4 (Free Thyroxine) 1.47 ng/dL (0.89-1.76); Globulin 3.0 gm/dL (2.3-3.5); Glucose 123 mg/dL (74-106); HDL Cholesterol 34 mg/dL (40-60); LDL Cholesterol,Calculated 44 mg/dL (0-130); Osmolality,Calculated 291 (275-295); Potassium 3.4 mMol/L (3.4-5.1); Sodium 146 mMol/L (136-145); Thyroid Stimulating Hormone 1.23 uIU/mL (0.55-4.78); Total Protein 6.7 gm/dL (5.7-8.2); Triglycerides 39 mg/dL (30-150); eGFR > 60 See Note
[2024-11-26 06:31] LABS: Ferritin 15 ng/mL (10.5-307.3); Iron 23 mcg/dL (65-175); Percent Iron Saturation 7 % (20-55); Total Iron Binding Capacity 293 mcg/dL (250-425); Unsaturated Iron Binding 270 (225-295)
[2024-11-26 06:43] LABS: Glucose Estimated Average 154 mg/dL (80-131); Hemoglobin A1C 7.0 % Hgb (4.8-6.0)
[2024-11-26] MEDS: ACETAMINOPHEN 325 MG TABLET 650 MG PO (09:10)
[2024-11-26] MEDS: TICAGRELOR 90 MG TABLET PO ×2 (09:10→19:59)
[2024-11-26] MEDS: HEPARIN SOD INJ 5000 UNIT/ML VIAL SC ×2 (09:10→20:00)
--- NOTE | 2024-11-26 10:18 | PC.NURSE ---
Received call from [facility], heart rate jumping to 160s. Upon entry to room, pt sleeping and awoke up checking leads. HR now 80s/90s and Pt denies symptoms. Dr Jiménez notified of event
[2024-11-26] MEDS: Magnesium Sulfate 2 GM Ivpb 2 GM/50 ML BAG IV (10:36)
[2024-11-26 12:57] LABS: Magnesium 2.2 mg/dL (1.6-2.6); Phosphorous 3.5 mg/dL (2.4-5.1)
--- NOTE | 2024-11-26 14:00 | PC.SS ---
Rounding Note: Echo pending. Cardiology recommendations are pending.
[2024-11-26] MEDS: GABAPENTIN 100 MG CAPSULE PO ×2 (14:10→21:35)
--- NOTE | 2024-11-26 15:08 | ESCONSULT_ITS ---
<Statement entered by Elizabeth Carias MD - 11/28/24 13:30> The patient personally examined by me evaluated the patient with previous PCI stent placement continues on methamphetamine abuse clinically stable no further workup is necessary evaluate the patient with resident physician Dr. Polo agree with the treatment plan recommendation as documented. HPI Data of Consult Requesting Physician: Brett Hooks MD Admitting Provider: Brett Hooks MD Attending Provider: Brett Hooks MD Primary Care Provider: Walt Squires MD Consult Narrative History of present illness: Mr. Villar is a 74-year-old male with past medical history significant for myocardial infarction, CAD status post PCI, COPD, asthma and hypertension presented to the ED on 11/25 due to worsening shortness of breath. Patient states that for the past week he has been having worsening shortness of breath to the point where he has been unable to lay flat and sleep. Patient states he has been having a very difficult time lately because his has dementia and has been noncompliant with his medications other than Brilinta. Patient also admits to using methamphetamine almost daily. Patient does have a history of an MO in March 2024 for which he underwent angioplasty and PCI and had 100% occlusion of RCA and a stent was placed at that time patient was discharged on aspirin, Brilinta and statin however patient states that the only thing he has been compliant with is the Brilinta. Patient denies any chest pain, pressure or tightness. Patient also denies any syncopal episodes or dizziness. Patient denies any recent illness or travel history. Cardiology is consulted for worsening CHF and due to history of STEMI. PMH: myocardial infarction, CAD status post PCI, COPD, asthma and hypertension PSH: PCI and angioplasty SH: Patient puts methamphetamine in his coffee almost daily, denies smoking cigarettes (Pt does have 30 pack years smoking history and unsure when he stopped smoking) and drinking alcohol Home Meds: Brilinta 90mg BID cc:: cc: Brett Hooks MD Review of Systems Review of Systems Systems Reviewed: All systems reviewed, normal except as documented Exam Vital Signs Temp Pulse Resp BP Pulse Ox O2 Del Method O2 Flow Rate 97.7 F 87 20 129/75 100 Nasal Cannula 1 11/26/24 12:00 11/26/24 14:07 11/26/24 13:53 11/26/24 14:07 11/26/24 13:53 11/26/24 12:00 11/26/24 13:53 Narrative Exam GENERAL: A&Ox3 . Awake, unkept male, in peer hygiene, Not in acute distress NEURO: no focal neurological deficits HEENT: Atraumatic, Normocephalic. mucous membranes moist. Eyes open, symmetrical, & clear HEART: Normal Heart Sounds, no gallops heard, regular rate and rhythm LUNGS: Clear to auscultation with no wheezing or crackles. ABDOMEN: soft, non-distended, non-tender, bowel sounds heard, no guarding or rebound tenderness SKIN: No Rash or ecchymoses EXTREMITIES: trace pitting edema b/l in LE, no tenderness, able to move all 4 extremities, pedal pulses palpated Results Labs 11/26/24 04:34 11/26/24 04:34 Labs: Short CBC 11/25/24 11/26/24 Range/Units 19:53 04:34 WBC 7.4 7.6 (3.8-10.6) Thou/mm3 Hgb 9.2 L 10.1 L (13.5-16.0) g/dL Hct 29.9 L 32.8 L (41.0-53.0) % Plt Count 285 293 (140-440) Thou/mm3 BMP 11/25/24 11/26/24 19:53 04:34 Sodium 144 146 H Potassium 3.4 3.4 Chloride 111 H 108 H Carbon Dioxide 20.5 24.8 BUN 13 12 Creatinine 1.0 1.0 Glucose 132 H 123 H Calcium 9.3 8.5 Cardiac Enzymes 11/25/24 Range/Units 19:53 Troponin I 0.027 (0.0-0.045) ng/mL Liver Function 11/25/24 11/26/24 Range/Units 19:53 04:34 Total Bilirubin 0.6 0.6 (0.3-1.2) mg/dL AST 24 24 (0-34) U/L ALT 21 21 (10-49) U/L Alkaline Phosphatase 118 H 125 H (46-116) U/L Albumin 3.8 3.7 (3.4-4.8) gm/dL Urine 11/25/24 Range/Units 21:53 Urine Color Yellow (Lt Yel-Yel) Urine Clarity Clear (Clear/Hazy) Urine pH 5.5 (5.0-7.0) Ur Specific [place] 1.030 (1.001-1.035) Urine Protein Trace (Neg - Trace) Urine Glucose (UA) Negative (Negative) ABG Interpretation ABG results: 11/25/24 20:26 VBG pH 7.43 VBG pCO2 35 L VBG pO2 34 VBG Base Excess -1 Quality Measures Quality Measures VTE prophylaxis Advance care planning discussed with:: patient Medications Home Medications and Allergies Home Medications ?Medication ?Instructions ?Recorded ?Confirmed ?Type budesonide-formoterol HFA 80 2 puff inhalation QDAY 11/26/24 History mcg-4.5 mcg/actuation aerosol inhaler (Breyna) fluticasone propionate 50 2 spray intranasal Q12H 10/3111/26/24 History mcg/actuation nasal spray,suspension Allergies Allergy/AdvReac Type Severity Reaction Status Date / Time No Known Allergies Allergy Verified 11/25/24 19:34 Visit Medications Acetaminophen (Acetaminophen 325 Mg Tablet) 650 mg PO Q6H PRN PRN Reason: PAIN SCALE 1-3 (mild Stop: 12/25/24 21:59 Last Admin: 11/26/24 09:10 Dose: 650 mg Albuterol/Ipratropium (Albuterol/Ipratropium (Duoneb) Rt Mona 3 Ml Nebu) 3 ml INH Q6HRRT KANNAN Stop: 12/26/24 00:59 Last Admin: 11/26/24 13:52 Dose: 3 ml Atorvastatin Calcium (Atorvastatin Calcium 20 Mg Tablet) 40 mg PO HS KANNAN Stop: 12/26/24 20:59 Furosemide (Furosemide Inj 10 Mg/Ml 4ml Vial) 40 mg IVP TID KANNAN Stop: 12/26/24 13:59 Last Admin: 11/26/24 14:07 Dose: 40 mg Gabapentin (Gabapentin 100 Mg Capsule) 100 mg PO TID KANNAN Stop: 12/26/24 13:59 Last Admin: 11/26/24 14:10 Dose: 100 mg Heparin Sodium (Porcine) (Heparin Sod Inj 5000 Unit/Ml Vial) 5,000 unit SC Q12HR KANNAN Stop: 12/10/24 08:59 Last Admin: 11/26/24 09:10 Dose: 5,000 unit Levalbuterol HCl (Levalbuterol Rt 0.63 Mg/3 Ml Nebu) 0.63 mg INH Q8HR PRN PRN Reason: WHEEZING Stop: 12/25/24 22:30 Last Admin: 11/25/24 22:48 Dose: 0.63 mg Lisinopril (Lisinopril 2.5 Mg Tablet) 10 mg PO QDAY [facility] Stop: 12/26/24 08:59 Last Admin: 11/26/24 09:10 Dose: 10 mg Ondansetron HCl (Ondansetron Inj 2 Mg/Ml Inj 2 Ml) 4 mg IVP Q6H PRN; Protocol PRN Reason: NAUSEA OR VOMITING Stop: 12/25/24 21:58 Sennosides (Senna Tablet) 1 tab PO QDAY PRN; Protocol PRN Reason: constipation Stop: 12/25/24 21:59 Ticagrelor (Ticagrelor 90 Mg Tablet) 90 mg PO BID [facility] Stop: 12/26/24 08:59 Last Admin: 11/26/24 09:10 Dose: 90 mg Discontinued Medications Aspirin (Aspirin Ec 81 Mg Tabec) 81 mg PO QDAY [facility] Stop: 12/26/24 14:44 Last Admin: 11/26/24 15:01 Dose: Not Given Furosemide (Furosemide Inj 10 Mg/Ml Vial 2 Ml) 40 mg IVP X1 ONE Stop: 11/25/24 21:17 Last Admin: 11/25/24 21:51 Dose: 40 mg Furosemide (Furosemide Inj 10 Mg/Ml 4ml Vial) 40 mg IVP BIDD [facility] Stop: 12/26/24 05:59 Last Admin: 11/26/24 05:23 Dose: 40 mg Magnesium Sulfate (Magnesium Sulfate Ivpb) 4 gm in 50 mls @ 12.5 mls/hr IV X1 ONE Stop: 11/26/24 02:05 Last Admin: 11/25/24 22:28 Dose: 12.5 mls/hr Magnesium Sulfate (Magnesium Sulfate Ivpb) 2 gm in 50 mls @ 25 mls/hr IV X1 ONE Stop: 11/26/24 12:15 Last Admin: 11/26/24 10:36 Dose: 25 mls/hr Potassium Chloride (Potassium Chloride 20 Meq Tabcr) 40 meq PO X1 ONE Stop: 11/25/24 22:06 Last Admin: 11/25/24 22:31 Dose: 40 meq Potassium Chloride (Potassium Chloride 20 Meq Tabcr) 20 meq PO X1 ONE Stop: 11/26/24 10:12 Last Admin: 11/26/24 10:35 Dose: 20 meq Assessment & Plan Plan Mr. Villar is a 74-year-old male with past medical history significant for myocardial infarction, CAD status post PCI, COPD, asthma and hypertension presented to the ED on 0 11/25 due to worsening shortness of breath. # Acute decompensated heart failure # HFrEF, EF 30% # Methamphetamine cardiomyopathy - Patient presented with severe shortness of breath and orthopnea - Patient endorses to drinking meth in his coffee almost daily, urine tox during this hospital admission is positive for methamphetamine. -On physical examination, pt is on suplemental O2 via nasal canula and 1+ pitting edema was noted on admission Echo done on 11/25: Mildly dilated left ventricle with severe global hypokinesis ejection fraction 30%. RV size is moderately increased with normal systolic function. The estimated RVSP, 48 mmHg. RAP 15. Mild to moderate mitral regurgitation. Mild aortic valve regurgitation. Mild tricuspid valve regurgitation. Dilated inferior vena cava. CXR: Vascular congestion, mild CHF, BNP: 825 NYHA class lll Plan: - Recommending starting GDMT as BP is tolerating: Lasix, LIANG/ARB, spironolactone and beta-ashleigh. - Patient will need education on compliance with his medication, and complete abstinence from methamphetamine use - Fluid restriction to 1800, sodium restriction to 2 g daily, strict ins and outs -Supplemental O2 as needed # History of myocardial infarction 2/2 # CAD status post thrombectomy, angioplasty and PCI - In March 2024 patient presented with acute MO, and underwent cardiac catheterization with thrombectomy, angioplasty as well as a stent placement in the RCA which was 100% occluded. Patient was discharged home on aspirin and Brilinta as well as statin. - Patient admits to not being compliant with any of his medications other than Brilinta and has not followed up with any cloth baler since his MO. - During this hospital admission patient denies any chest pain, pressure, tightness. -Troponin 0.027 Plan: - Continue aspirin, Brilinta and statin #Type 2 DM, newly diagnosed - A1c 7.0. recommend starting pt on ISS in the hospital and metformin or other oral agent on discharge #COPD/asthma #Iron deficiency anemia #Neck mass with cervical pain Thank you for the consult and allowing us to participate in the care of the patient. Cardiology will continue to follow. Assessment and plan discussed with my attending Wash Mill Operator Dr. Jv Polo (PGY-2)- Internal medicine resident
--- NOTE | 2024-11-26 15:45 | PC.NURSE ---
Roommate Roxana Lair can be reached at [phone] in case emergency contact cannot be reached due to work schedule
--- NOTE | 2024-11-26 17:44 | ESPR_ITS ---
<Statement entered by Giancarlo Goodson MD - 12/01/24 12:37> I reviewed above note and agree with findings and plans. I have also personally examined the patient with medicine team and went over assessment and plan with medical team including merchandising intern and resident physician. <Statement entered by Valentino East MD - 11/26/24 18:39> Patient seen and examined at bedside. I discussed and supervised with the merchandising intern physician who took care of this patient. I personally saw and examined the patient. I agree with most of the assessment and plan. Patient complains of dyspnea on exertion, orthopnea. Minimal edema, but bilateral crackles. Echo showed EF 30%. Cardiology on board, recs pending. Will continue diuretics, start GDMT as appropriate. Plan of care discussed with attending Dr. Goodson. Valentino East MD PGY-2 Documentation for date of: 11/26/24 Subjective Subjective Interval history: Patient reports mild improvement in breathing but still feels some SOB at rest. Unable to sleep well overnight. No chest pain, palpitations, or nausea. Reports severe bilateral leg cramping this morning. Admits to last methamphetamine use 2 days ago. Neck lump remains tender and painful on movement. No new focal complaints. Denies current dizziness, orthostasis, or swelling. Exam Vital Signs Temp Pulse Resp BP Pulse Ox O2 Del Method O2 Flow Rate 98.0 F 80 20 126/57 L 92 L Nasal Cannula 1 11/26/24 16:00 11/26/24 16:00 11/26/24 16:00 11/26/24 16:00 11/26/24 16:00 11/26/24 12:00 11/26/24 13:53 Narrative Exam Gen: Alert, frail-appearing, NAD Neuro: AOx3, no focal deficits HEENT: Moist mucosa, no scleral icterus. Tender left posterior neck mass along SCM. CV: RRR, no murmurs. No JVD. Resp: Mild SOB on exertion, bilateral expiratory wheezing GI: Soft, NT/ND Ext: 1+ pitting edema B/L, non-tender calves. Skin: No rash or lesions. MSK: Reports cramping in bilateral lower legs. Moves all extremities Objective Labs 11/26/24 04:34 11/26/24 04:34 Labs: Laboratory Results - last 24 hr 11/25/24 11/25/24 11/25/24 19:53 20:26 21:53 WBC 7.4 RBC 3.86 L Hgb 9.2 L Hct 29.9 L MCV 78 L MCH 23.8 L MCHC 30.8 L RDW Std Deviation 49.6 H Plt Count 285 Neut % (Auto) 73 Lymph % (Auto) 17 [place] % (Auto) 8 Eos % (Auto) 1 Baso % (Auto) 1 Neut # (Auto) 5.4 Lymph # (Auto) 1.3 [place] # (Auto) 0.6 Eos # (Auto) 0.1 Baso # (Auto) 0.0 Immature Gran # (Auto) 0.02 H Absolute Nucleated RBC 0.00 Immature Gran % 0 Nucleated RBC % 0 Retic Count (auto) Absolute Retic Immature Retic Fraction Retic Hgb Content CHr VBG pH 7.43 VBG pCO2 35 L VBG pO2 34 VBG O2 Sat (Ramila) 60 L VBG Base Excess -1 Sodium 144 Potassium 3.4 Chloride 111 H Carbon Dioxide 20.5 Anion Gap 13 BUN 13 Creatinine 1.0 Estim Creat Clear Calc 60.9 L eGFR > 60 BUN/Creatinine Ratio [address] Glu mg/dL Hemoglobin A1c Calculated Osmolality 288 Calcium 9.3 Corrected Calcium 9.5 Phosphorus Magnesium 1.6 Iron TIBC Iron Saturation Unsat Iron Binding Ferritin Total Bilirubin 0.6 AST 24 ALT 21 Alkaline Phosphatase 118 H Troponin I 0.027 B-Natriuretic Peptide 825 H* Total Protein 6.5 Albumin 3.8 Globulin 2.7 Albumin/Globulin Ratio 1.4 Triglycerides Cholesterol LDL Cholesterol, Calc HDL Cholesterol Cholesterol/HDL Ratio TSH Free T4 Ur Collection Type Voided Urine Color Yellow Urine Clarity Clear Urine pH 5.5 Ur Specific [place] 1.030 Urine Protein Trace Urine Glucose (UA) Negative Urine Ketones Negative Urine Blood Negative Urine Nitrite Negative Urine Bilirubin Negative Urine Urobilinogen (Auto) 2.0 Ur Leukocyte Esterase Negative Urine RBC 2 Urine WBC 3 Ur Squamous Epith Cells 2 Amorphous Crystals Present A Urine Bacteria None Granular Casts < 1 Ur Culture Indicated? Not Indicated Urine Opiates Screen Negative Urine Fentanyl Screen Negative Ur Barbiturates Screen Negative U Amphetamin/Meth Scrn Positive A U Benzodiazepines Scrn Negative U Cocaine Metab Screen Negative U Marijuana (THC) Screen Negative 07/28/25 07/28/25 04:34 04:54 WBC 7.6 RBC 4.21 L Hgb 10.1 L Hct 32.8 L MCV 78 L MCH 24.0 L MCHC 30.8 L RDW Std Deviation 50.2 H Plt Count 293 Neut % (Auto) 74 Lymph % (Auto) 14 [place] % (Auto) 9 Eos % (Auto) 1 Baso % (Auto) 1 Neut # (Auto) 5.6 Lymph # (Auto) 1.1 [place] # (Auto) 0.7 Eos # (Auto) 0.1 Baso # (Auto) 0.1 Immature Gran # (Auto) 0.02 H Absolute Nucleated RBC 0.00 Immature Gran % 0 Nucleated RBC % 0 Retic Count (auto) 1.4 Absolute Retic 57.3 Immature Retic Fraction 19.8 H Retic Hgb Content CHr 24.5 L VBG pH VBG pCO2 VBG pO2 VBG O2 Sat (Ramila) VBG Base Excess Sodium 146 H Potassium 3.4 Chloride 108 H Carbon Dioxide 24.8 Anion Gap 13 BUN 12 Creatinine 1.0 Estim Creat Clear Calc 60.9 L eGFR > 60 BUN/Creatinine Ratio [address] Glu mg/dL 154 H Hemoglobin A1c 7.0 H Calculated Osmolality 291 Calcium 8.5 Corrected Calcium 8.7 Phosphorus 3.5 Magnesium 2.2 Iron 23 L TIBC 293 Iron Saturation 7 L Unsat Iron Binding 270 Ferritin 15 Total Bilirubin 0.6 AST 24 ALT 21 Alkaline Phosphatase 125 H Troponin I B-Natriuretic Peptide Total Protein 6.7 Albumin 3.7 Globulin 3.0 Albumin/Globulin Ratio 1.2 Triglycerides 39 Cholesterol 86 L LDL Cholesterol, Calc 44 HDL Cholesterol 34 L Cholesterol/HDL Ratio 2.5 L TSH 1.23 Free T4 1.47 Ur Collection Type Urine Color Urine Clarity Urine pH Ur Specific [place] Urine Protein Urine Glucose (UA) Urine Ketones Urine Blood Urine Nitrite Urine Bilirubin Urine Urobilinogen (Auto) Ur Leukocyte Esterase Urine RBC Urine WBC Ur Squamous Epith Cells Amorphous Crystals Urine Bacteria Granular Casts Ur Culture Indicated? Urine Opiates Screen Urine Fentanyl Screen Ur Barbiturates Screen U Amphetamin/Meth Scrn U Benzodiazepines Scrn U Cocaine Metab Screen U Marijuana (THC) Screen ABG Interpretation ABG results: 11/25/24 20:26 VBG pH 7.43 VBG pCO2 35 L VBG pO2 34 VBG Base Excess -1 Quality Measures Quality Measures VTE prophylaxis Advance care planning discussed with:: patient Assessment & Plan Assessment Current Active Medications: Generic Name Dose Route Start Last Admin Trade Name Vimal PRN Reason Stop Dose Admin Acetaminophen 650 mg 11/25/24 22:00 11/26/24 09:10 Acetaminophen 325 Mg Tablet PO 12/25/24 21:59 650 mg Q6H PRN Administration PAIN SCALE 1-3 (mild Albuterol/Ipratropium 3 ml 11/26/24 01:00 11/26/24 13:52 Albuterol/Ipratropium (Duoneb) Rt Mona 3 Ml Nebu INH 12/26/24 00:59 3 ml Q6HRRT KANNAN Administration Atorvastatin Calcium 40 mg 11/26/24 21:00 Atorvastatin Calcium 20 Mg Tablet PO 12/26/24 20:59 HS KANNAN Furosemide 40 mg 11/26/24 14:00 11/26/24 14:07 Furosemide Inj 10 Mg/Ml 4ml Vial IVP 12/26/24 13:59 40 mg TID KANNAN Administration Gabapentin 100 mg 11/26/24 14:00 11/26/24 14:10 Gabapentin 100 Mg Capsule PO 12/26/24 13:59 100 mg TID KANNAN Administration Heparin Sodium (Porcine) 5,000 unit 11/26/24 09:00 11/26/24 09:10 Heparin Sod Inj 5000 Unit/Ml Vial SC 12/10/24 08:59 5,000 unit Q12HR KANNAN Administration Levalbuterol HCl 0.63 mg 11/25/24 22:31 11/25/24 22:48 Levalbuterol Rt 0.63 Mg/3 Ml Nebu INH 12/25/24 22:30 0.63 mg Q8HR PRN Administration WHEEZING Lisinopril 10 mg 11/26/24 09:00 11/26/24 09:10 Lisinopril 2.5 Mg Tablet PO 12/26/24 08:59 10 mg QDAY KANNAN Administration Ondansetron HCl 4 mg 11/25/24 21:59 Ondansetron Inj 2 Mg/Ml Inj 2 Ml IVP 12/25/24 21:58 Q6H PRN NAUSEA OR VOMITING Protocol Sennosides 1 tab 11/25/24 22:00 Senna Tablet PO 12/25/24 21:59 QDAY PRN constipation Protocol Ticagrelor 90 mg 11/26/24 09:00 11/26/24 09:10 Ticagrelor 90 Mg Tablet PO 12/26/24 08:59 90 mg BID KANNAN Administration Plan 74-year-old male with CAD s/p RCA stent (03/2024), HFmEF (EF 45%), COPD/asthma, hypertension, methamphetamine use, and homelessness, presenting with progressive dyspnea, orthopnea, and bilateral leg edema, found to have a CHF exacerbation likely precipitated by meth use and medication nonadherence. #Acute CHF exacerbation Acute on chronic CHF exacerbation with hypoxia, volume overload, and orthopnea; likely NYHA class III-IV; likely triggered by meth use and med nonadherence. CXR: Vascular congestion, mild CHF, BNP: 825 No ischemic symptoms; trop flat Echo pending Plan: * Increase IV Lasix 40 mg from BID to TID * Daily weights, strict I/Os, furosemide adjustment based on UOP and weight * Echo follow-up to evaluate EF and structure * Fluid restriction 1800 mL/day * Monitor K+ and Mg++ (replete to >4 and >2 respectively) * Initiate carvedilol and spironolactone once volume controlled and echo reviewed * Patient education: CHF management, symptom monitoring * Smoking cessation + meth cessation counseling * Cardiology consulted, recs appreciated #CAD s/p RCA stent 03/2024 Known CAD post-[place]; currently no angina or signs of ACS; no cardiology follow-up due to insurance issues. Trop 0.027, no rise Denies chest pain Plan: * Continue Brilinta and statin * Monitor for new symptoms * Arrange outpatient cardiology follow-up if feasible #COPD/asthma Mild wheezing without increased secretions or cough; currently stable. Expiratory wheezing on exam Plan: * Scheduled and PRN albuterol/ipratropium nebs * Maintain O2 goal 88-92% * Monitor for increased sputum, fever, or worsening work of breathing * Continue home inhalers if known #Methamphetamine use disorder Positive U-tox; patient admits last use 2 days ago; likely contributing to cardiac dysfunction and CHF exacerbation. Plan: * Addiction medicine referral / social work consult * Harm reduction and cessation counseling #Bilateral leg cramps Likely multifactorial (diuresis-related electrolyte shifts, deconditioning, vascular) but no claudication or DVT signs Plan: * Started Gabapentin 100mg tid * Replete potassium (K = 3.4) and magnesium * Encourage ambulation as tolerated * Consider stretching/PT eval if persistent * Monitor for DVT signs #Iron deficiency anemia Likely due to nutritional deficiency; no overt bleeding; evidence of marrow response. Hgb 10.1 (up from 9.2), MCV 78 Iron 23 (low), Sat 7%, Ferritin low-normal Retic high, CHr low Plan: * Start PO iron supplement, check GI tolerance * Monitor H/H daily * No transfusion needed at this time * Reassess after 72hr of repletion #Neck mass with cervical pain Left posterior neck mass, tender with movement, likely lipoma but X-ray inconclusive X-ray: Limited; carotid calcification Plan: * Schedule outpatient neck soft tissue ultrasound * Pain control as needed * Discuss vascular vs benign etiology based on clinical and imaging Health Maintenance Lines: PIV Diet: Cardiac DVT Prophylaxis: Heparin SQ GI Prophylaxis: Not indicated Activity: Up with assistance Disposition: Continue diuresis and workup for CHF etiology Code Status: Full ----- Plan discussed with attending physician Dr. Goodson and senior resident Dr. Marcelo MD PGY-1 Internal Medicine
[2024-11-26] MEDS: ATORVASTATIN CALCIUM 20 MG TABLET 40 MG PO (19:59)
--- NOTE | 2024-11-26 23:29 | PD.RESEVENT ---
Documentation for date of: 11/26/24 Event Note Event Note: 11/26/2024 at around 11 PM, rapid response called for patient at 276 for having elevated heart rate, 170s with SVT noted on telemetry. Patient seen and assessed in hospital bed, airway/breathing/circulation intact and heart rate had come back down to around 105. Patient is awake and answering questions appropriately and denies having any concerning symptoms such as chest pain, palpitations, worsening shortness of breath or dizziness. Will continue monitor the patient for any acute changes. No labs or imaging ordered; labs reviewed and will follow-up with morning labs. Jose Montgomery, DO PGY-2 Internal Medicine - GME
[2024-11-27] VITALS (9 sets, daily range): BP systolic 114–143; BP diastolic 65–84; PULSE 78–104; RESP 14–20; TEMP 36.2–36.7; O2SAT 92–100
[2024-11-27] MEDS: ALBUTEROL/IPRATROPIUM (Duoneb) RT SOL 3 ML NEBU INH ×2 (00:45→07:12)
[2024-11-27 05:38] LABS: Basophils # (Auto) 0.1 Thou/mm3 (0.0-0.2); Basophils % (Auto) 1 % (0-2.5); Eosinophils # (Auto) 0.2 Thou/mm3 (0.0-0.5); Eosinophils % (Auto) 2 % (0-10); Hematocrit 38.0 % (41.0-53.0); Hemoglobin 12.1 g/dL (13.5-16.0); Immature Granulocytes Auto 0.02 Thou/mm3 (0.00-0.00); Lymphocytes # (Auto) 1.6 Thou/mm3 (1.0-4.8); Lymphocytes % (Auto) 17 % (10-50); Mean Corpuscular HGB Conc 31.8 g/dl (31.0-37.0); Mean Corpuscular Hemoglobin 24.2 pg (25.0-35.0); Mean Corpuscular Volume 76 fL (80-100); Monocytes # (Auto) 0.9 Thou/mm3 (0.0-0.8); Monocytes % (Auto) 10 % (0-12); Neutrophils # (Auto) 6.3 Thou/mm3 (1.8-7.7); Neutrophils % (Auto) 71 % (37-80); Nucleated Red Blood Cell # 0.00 Thou/mm3 (0.00-0.00); Nucleated Red Blood Cell % 0 /100 WBC (0); Platelet Count 302 Thou/mm3 (140-440); RDW Standard Deviation 48.5 fL (35.1-43.9); Red Blood Count 5.00 Miln/mm3 (4.50-5.90); White Blood Count 9.0 Thou/mm3 (3.8-10.6)
[2024-11-27] MEDS: GABAPENTIN 100 MG CAPSULE PO (05:38)
[2024-11-27] MEDS: FUROSEMIDE INJ 10 MG/ML 4ML VIAL 40 MG IVP (05:40)
[2024-11-27 05:55] LABS: Alanine Aminotransferase 20 U/L (10-49); Albumin, Serum 3.7 gm/dL (3.4-4.8); Albumin/Globulin Ratio 1.2 (1.2-2.2); Alkaline Phosphatase 128 U/L (46-116); Anion Gap 9 (7-16); Aspartate Amino Transferase 24 U/L (0-34); BUN/Creatinine Ratio 13 Ratio (12-20); Bilirubin,Total 0.8 mg/dL (0.3-1.2); Blood Urea Nitrogen 14 mg/dL (9-23); Calcium 8.7 mg/dL (8.3-10.6); Calcium (Corrected) 8.9 mg/dL (8.5-10.1); Carbon Dioxide 27.2 mMol/L (20.0-31.0); Chloride 106 mMol/L (98-107); Creatinine (Component) 1.1 mg/dL (0.6-1.3); Estimated Creatinine Clearance 60.8 mL/min (>60); Globulin 3.2 gm/dL (2.3-3.5); Glucose 105 mg/dL (74-106); Magnesium 2.2 mg/dL (1.6-2.6); Osmolality,Calculated 283 (275-295); Phosphorous 4.2 mg/dL (2.4-5.1); Potassium 3.8 mMol/L (3.4-5.1); Sodium 142 mMol/L (136-145); Total Protein 6.9 gm/dL (5.7-8.2); eGFR > 60 See Note
--- NOTE | 2024-11-27 07:26 | PC.SS ---
AUTO APPRENTICE MECHANIC conducted bedside contact with the patient conduct initial assessment and to discuss discharge planning.? Patient confirmed demographic information.? Patient resides at home with family.? Patient does not utilize any form of DME to assist with ambulation.? Patient does not utilize home oxygen.? Patient is currently on 3L oxygen.? Patient describes the ability to complete ADL?s independently.? Patient identified niece, Angela Carpio ; as surrogate medical decision maker.? Patient?s PCP is Dr. Squires, [facility].? Patient does not participate with dialysis.? Patient does not possess any specialty providers.? Patient does not possess diabetes. ?Patient utilizes [facility] for medication services.? Plan is for the patient to return home at the time of discharge.? Patient confirms access to provisions and possession of basic utilities.? If oxygen required at the time of discharge no preferred vendor identified.? Family will provide transportation on behalf of the patient. ?No further discharge needs identified by the patient.? No further intervention required at this time, social worker school will be available to address any further concerns.? Next of Kin: Angela Carpio D/C Plan: Home
--- NOTE | 2024-11-27 08:08 | PC.SS ---
INSPECTOR PLUG SEAM notified bedside nurse of need to conduct room air evaluation on behalf of the patient to determine patient's need for home oxygen.
[2024-11-27] MEDS: HEPARIN SOD INJ 5000 UNIT/ML VIAL SC (08:14)
[2024-11-27] MEDS: METOPROLOL SUCCINATE XL 25 MG TABCR PO (08:14)
[2024-11-27] MEDS: TICAGRELOR 90 MG TABLET PO (08:14)
[2024-11-27] MEDS: ASPIRIN EC 81 MG TABEC PO (08:35)
--- NOTE | 2024-11-27 12:52 | PC.SS ---
SUPERVISOR COAL HANDLING confirmed with bedside nurse that patient will not require home oxygen at the time of discharge.
--- NOTE | 2024-11-27 14:21 | PC.SS ---
Rounding Note: Plan is for the patient to discharge home today.
--- NOTE | 2024-11-27 14:27 | ESDS_ITS ---
<Statement entered by Giancarlo Goodson MD - 12/01/24 12:38> I reviewed above note and agree with findings and plans. I have also personally examined the patient with medicine team and went over assessment and plan with medical team including mba intern and resident physician. <Statement entered by Valentino East MD - 11/27/24 14:48> Patient seen and examined at bedside. I discussed and supervised with the mba intern physician who took care of this patient. I personally saw and examined the patient. I agree with most of the assessment and plan. Plan of care discussed with attending Dr. Kellee East MD PGY-2 Planned Discharge Date 11/27/24 DS: Providers Provider Date of admission: 11/25/24 21:59 Primary care physician: Walt Squires MD Admitting Provider: Brett Hooks MD Attending Provider on Admission: Brett Hooks MD Consults: 11/26/24 07:00 Referral Physical Therapy Routine Comment: Physician Instructions: 11/26/24 08:12 Consult to Cardiology Routine Comment: Consulting Provider: Elizabeth Carias Attending Provider on DC: Giancarlo Goodson MD Discharging Provider: RESIDENT Grace DS: Diagnosis Problem List Completed Was Problem List Reviewed/Reconciled?: Yes Hospital Course Hospital Course Hospital course: 74-year-old male with a past medical history of CAD s/p RCA stent (03/2024), HFrEF (EF now 30%), COPD/asthma, hypertension, methamphetamine use, and housing insecurity, presented with worsening shortness of breath and orthopnea. He reported being unable to follow up with cardiology after his NE and had been intermittently taking medications, only consistently taking Brilinta. In the ED, he was found to be tachypneic (RR 28), hypoxic (O2 sat 90% on room air), and hypertensive (BP 150/99). Labs showed BNP 825, Hgb 9.2, MCV 78, Cr 1.0, and a positive U-tox for methamphetamine. Chest X-ray demonstrated mild CHF and vascular congestion. Physical exam revealed mild wheezing, orthopnea, and bilateral 2+ pitting edema. He was admitted for acute decompensated heart failure and started on IV Lasix, with a net negative fluid balance of nearly 2 liters after escalating to TID dosing. Echocardiogram revealed EF 30% with severe global hypokinesis, moderately dilated RV, mild to moderate mitral regurgitation, and a dilated IVC. The patient was initiated on guideline-directed medical therapy (GDMT): Lasix, Lisinopril, Metoprolol, and re-started on Brilinta and statin. Spironolactone was held inpatient due to borderline blood pressure and will be initiated outpatient by cardiology. On the night of 11/26/24, a rapid response was called for SVT with HR in the 170s, which spontaneously resolved after <20 seconds. The patient denied any symptoms, and telemetry showed no recurrence. Anemia workup revealed iron deficiency; Hgb improved from 9.2 -> 12.1 with PO iron supplementation. The patient also complained of intermittent leg cramps, likely multifactorial (diuresis, electrolytes, deconditioning). These improved with electrolyte repletion. He had a tender left-sided neck mass; X-ray was inconclusive but showed left carotid vascular calcification. Outpatient follow up required. The patient remained stable on new medications and diuresed well with improving symptoms. He was counseled extensively on medication compliance and methamphetamine cessation, and social work was involved to assist with housing and addiction support. Diagnoses During Admission: #Acute decompensated heart failure #HFrEF (EF 30 percent) #Methamphetamine associated cardiomyopathy #Supraventricular tachycardia #Coronary artery disease status post RCA stent #History of myocardial infarction #COPD with mild baseline wheezing #Methamphetamine use disorder #Iron deficiency anemia #Bilateral leg cramps #Left neck mass with vascular calcification #Housing insecurity Discharge Plan: Continue taking Lasix 40 mg once daily, lisinopril 10 mg once daily, metoprolol succinate 25 mg once daily Continue monitoring your blood pressure at home and if blood pressure drops below 80/60 hold on your blood pressure medications and track your weight daily if you gain more than 2 pounds in a day seek medical attention with your validation consultant Take aspirin 81 mg once daily, atorvastatin 80 mg at night and Brilinta 90 mg twice daily Take breathing inhalers as prescribed Follow-up with your PCP as outpatient within a week Follow-up with your validation consultant as outpatient within a week In case of emergency, call 911 and come back to the ED ----- Plan discussed with attending physician Dr. Goodson and senior resident Dr. Marcelo MD PGY-1 Internal Medicine Time Spent with Patient Time attestation: Total time spent providing and/or coordinating discharge services: Time spent: Greater than 30 minutes Exam Vital Signs Temp Pulse Resp BP Pulse Ox O2 Del Method O2 Flow Rate 97.5 F 89 16 114/70 94 L Room Air 1 11/27/24 12:00 11/27/24 12:00 11/27/24 12:00 11/27/24 12:00 11/27/24 12:00 11/27/24 12:00 11/27/24 07:50 Narrative Exam Physical Exam on Discharge: Gen: Awake, NAD HEENT: Moist mucosa, no icterus, neck mass non-fluctuant, tender to palpation CV: RRR, no murmurs, no JVD Resp: Clear to auscultation, no increased work of breathing Abd: Soft, NT/ND Ext: Trace bilateral LE edema Neuro: AOx3, no focal deficits Skin: No rash or breakdown Lines: PIV removed Discharge Plan Plan Patient Disposition: HOME (Self Care) Patient condition on transfer: Stable Care Plan Goals: Continue taking Lasix 40 mg once daily, lisinopril 10 mg once daily, metoprolol succinate 25 mg once daily Continue monitoring your blood pressure at home and if blood pressure drops below 80/60 hold on your blood pressure medications and track your weight daily if you gain more than 2 pounds in a day seek medical attention with your validation consultant Take aspirin 81 mg once daily, atorvastatin 80 mg at night and Brilinta 90 mg twice daily Take breathing inhalers as prescribed Follow-up with your PCP as outpatient within a week Follow-up with your validation consultant as outpatient within a week In case of emergency, call 911 and come back to the ED Prescriptions/Referrals Prescriptions/Med Rec: New aspirin 81 mg Tablet,Delayed Release (Dr/Ec) 81 mg PO QDAY 30 Days Qty: 30 0RF metoprolol succinate 25 mg Tablet Extended Release 24 Hr 25 mg PO QDAY 30 Days Qty: 30 0RF lisinopril 10 mg tablet 10 mg PO QDAY 30 Days Qty: 30 0RF furosemide [Lasix] 40 mg tablet 40 mg PO QAM 30 Days Qty: 30 0RF ipratropium bromide 17 mcg/actuation HFA aerosol inhaler 2 puff inhalation TID PRN (Reason: shortness of breath or wheezing) Qty: 12.9 0RF Continued famotidine [Pepcid] 40 mg tablet 40 mg PO QDAY Qty: 30 0RF ticagrelor [Brilinta] 90 mg Tablet 90 mg PO BID 30 Days Qty: 60 1RF atorvastatin 80 mg tablet 80 mg PO QPM Qty: 30 3RF fluticasone propionate 50 mcg/actuation spray,suspension 2 spray INTRANASAL Q12H Patient Comments: SPRAY 1 SPRAY INTO EACH NOSTRIL TWICE A DAY budesonide-formoterol [Breyna] 80-4.5 mcg/actuation HFA aerosol inhaler 2 puff INHALATION QDAY Patient Comments: USE DAILY INHALATION 30 DAYS Discontinued albuterol sulfate 90 mcg/actuation HFA aerosol inhaler 1 inh inhalation QID PRN (Reason: shortness of breath or wheezing) Qty: 8.5 0RF Rx Instructions: Dispense with spacer and teaching Referrals: Walt Squires MD [Primary Care Provider] - Elizabeth Carias MD [Physician] - Patient/Caregiver Discharge Instructions Discharge Activity: activity as tolerated Education Materials: Heart Failure Meds, Exercise for a Healthier Heart, Heart Failure Signs of Flare-Up, Heart Failure: Tracking Your Weight, Addiction Ask These Questions, Addiction: Getting Help, Addiction Recovery Counseling, Coping with Heart Failure, Heart Failure Making Changes to ..., Heart Failure Dc, Eating Heart-Healthy Foods, Heart Failure Print Language: B[place] Stand Alone Forms: [place]is Award Info., Patient Portal Info Letter Discharge Order Discharge Orders: Discharge (Routine); Ordered 11/27/24 Ordered By: Valentino East Quality Discharge Quality Measures VTE prophylaxis
== END 2024-11-27 13:50 | disposition home or self-care (01) | DRG 291 ==
LOC: SERX 21:21 → SERHOLD 22:18 → S2NX 11-26 00:50
PROVIDERS: Physician Assistant Medical; Admitting Provider Student in an Organized Health Care Education/Training Program; Emergency Provider Emergency Medicine; PCP Family Medicine; Visit Provider Student in an Organized Health Care Education/Training Program
DX: I11.0 Hypertensive heart disease with heart failure (principal); I50.23 Acute on chronic systolic (congestive) heart failure; J96.01 Acute respiratory failure with hypoxia; I47.10 Supraventricular tachycardia, unspecified; I25.10 Atherosclerotic heart disease of native coronary artery without angina pectoris; I25.2 Old myocardial infarction; R22.1 Localized swelling, mass and lump, neck; D50.9 Iron deficiency anemia, unspecified; J44.89 Other specified chronic obstructive pulmonary disease; M54.2 Cervicalgia; E78.5 Hyperlipidemia, unspecified; F15.10 Other stimulant abuse, uncomplicated; I42.7 Cardiomyopathy due to drug and external agent; I08.3 Combined rheumatic disorders of mitral, aortic and tricuspid valves; K21.9 Gastro-esophageal reflux disease without esophagitis; E11.9 Type 2 diabetes mellitus without complications; I77.89 Other specified disorders of arteries and arterioles; R25.2 Cramp and spasm; Z87.891 Personal history of nicotine dependence; Z95.5 Presence of coronary angioplasty implant and graft; Z75.3 Unavailability and inaccessibility of health-care facilities; Z91.148 Patient's other noncompliance with medication regimen for other reason; Z63.79 Other stressful life events affecting family and household; Z79.02 Long term (current) use of antithrombotics/antiplatelets; Z79.82 Long term (current) use of aspirin; Z79.899 Other long term (current) drug therapy; Z79.51 Long term (current) use of inhaled steroids
CPT/HCPCS: 36415; 71045; 72020; 80053; 80061; 80307; 81001; 82728; 82803; 83036; 83540; 83550; 83735; 83880; 84100; 84439; 84443; 84484; 85025; 85046; 87811; 93306; 94640; 96374; 96376; 97163; 99284; A9270; J1644; J1938; J3475

== ENCOUNTER 2024-12-03 15:33 | Emergency (ER) | payer MEDICARE, MEDICAID, SELFPAY ==
[2024-12-03] VITALS (13 sets, daily range): BP systolic 75–120; BP diastolic 56–71; PULSE 14–87; RESP 14–25; TEMP 36.2–36.9; O2SAT 96–100
--- NOTE | 2024-12-03 15:34 | EKG_ITS ---
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
--- NOTE | 2024-12-03 15:34 | EKG_ITS ---
[facility] Test Date: 2024-12-03 Pat Name: RICARDO DEAN Department: Room: - Gender: Male Bakery Assistant: : 1950 Requested By: ED Temporary Provider Order Number: [id number] Reading MD: ED Temporary Provider Measurements Intervals [place] Rate: 90 P: 88 [place]: 157 QRS: -62 QRSD: 100 T: 25 QT: 372 QTc: 456 Interpretive Statements SINUS RHYTHM WITH SINUS ARRHYTHMIA LEFT VENTRICULAR HYPERTROPHY AND ST-T CHANGE [VOLTAGE CRITERIA PLUS ST/T ABNORMALITY] Compared to ECG 11/26/2024 01:47:45 Left ventricular hypertrophy now present ST (T wave) deviation now present /store/[id number]
--- NOTE | 2024-12-03 16:12 | XR_ITS ---
Examination: AP chest single view Technique one AP portable upright chest single view Date and time: December 03, 2024, 1623 hours Comparison November 25, 2024 INDICATIONS: Chest pain shortness of breath beginning today. FINDINGS: Interstitial disease throughout the lungs No significant cardiac enlargement There is vascular congestion Prominent osteopenia IMPRESSION: Abnormal interstitial disease throughout the lungs, differential would include pneumonia, pulmonary edema, clinical correlation advised
--- NOTE | 2024-12-03 16:14 | PD.EDADULT ---
ED General RME/HPI General Chief complaint: Chest Pain Stated complaint: CHEST PAIN SINCE 1500 Time Seen by Provider: 12/03/24 15:46 Arrival date/time: 12/03/24 15:33 CC: Chest pain HPI onset approximately 45 minutes ago initially a 5 on a 10 scale now 1 on 10 scale without intervention EMS reports stable vital signs. Review the medical record show the patient was just discharged from here 6 days ago for congestive heart failure with an EF of 30% and on medications for CHF. Patient has a history of methamphetamine abuse he is currently awake alert oriented nontoxic-appearing not in any acute distress with oxygen saturations of 95% on room air. Related Data Home Medications ?Medication ?Instructions ?Recorded ?Confirmed budesonide-formoterol HFA 80 2 puff inhalation QDAY 11/26/24 11/26/24 mcg-4.5 mcg/actuation aerosol inhaler (Breyna) fluticasone propionate 50 2 spray intranasal Q12H 11/26/24 11/26/24 mcg/actuation nasal spray,suspension Previous Rx's ?Medication ?Instructions ?Recorded famotidine 40 mg tablet (Pepcid) 40 mg PO QDAY #30 tabs 04/27/20 atorvastatin 80 mg tablet 80 mg PO QPM #30 tabs 03/18/24 ticagrelor 90 mg tablet (Brilinta) 90 mg PO BID 1 month #60 tabs 03/18/24 aspirin 81 mg tablet,delayed 81 mg PO QDAY 1 month #30 tabs 11/27/24 release furosemide 40 mg tablet (Lasix) 40 mg PO QAM 1 month #30 tabs 11/27/24 ipratropium bromide 17 2 puff inhalation TID PRN 11/27/24 mcg/actuation HFA aerosol inhaler shortness of breath or wheezing #12.9 grams lisinopril 10 mg tablet 10 mg PO QDAY 1 month #30 tabs 11/27/24 metoprolol succinate 25 mg 25 mg PO QDAY 1 month #30 tabs 11/27/24 tablet,extended release 24 hr Allergies Allergy/AdvReac Type Severity Reaction Status Date / Time No Known Allergies Allergy Verified 11/25/24 19:34 Review of Systems Review of Systems Narrative Review of Systems: GEN: No fever, no chills, no weight loss EYES: No discharge, no visual changes, no pain HEENT: No ear pain, no congestion, no sore throat PULM: No shortness of breath, no cough, no congestion CV: + chest pain, no dyspnea on exertion, no palpitations GI: No nausea, no vomiting, no diarrhea, no pain, no constipation : No frequency, no urgency, no dysuria MUSC/SKEL: No joint pain, no back pain SKIN: No rash PSYCH: No hallucinations, no depression HEME/LYMPH: No easy bleeding or bruising tendencies NEURO: No weakness, no headache Past Medical History Past Medical History CARDIAC: Positive Cardiac Disorders, Myocardial Infarction and Congestive Heart Failure RESPIRATORY: Positive Chronic Obstructive Pulmonary Disease (COPD) and Asthma GASTROINTESTINAL: Positive Gastrointestinal Disorders, Ulcer and Gastroesophageal Reflux Disease GENITOURINARY: Negative Renal Disease ENT: Positive Cataracts ENDOCRINE: Negative Diabetes Mellitus Type 1 or Diabetes Mellitus Type 2 HEMATOLOGIC: Negative Sickle Cell Disease Surgical History SURGICAL: Positive Coronary Stent Social History SMOKING STATUS: Former smoker SECOND HAND EXPOSURE: Yes SUBSTANCE USE: does not use ED Exam Narrative Physical exam: [General: Thin but not emaciated appears not in any acute distress Head normocephalic HEENT: Eyes pupils are PERRLA EOMs intact mouth toothless, dry membranes, swallow symmetrical phonation is normal although the subsystems of HEENT are within acceptable limits Neck is supple nontender no JVD no edema Chest equal chest rise nontender to palpation Respiratory: Clear to auscultation no wheezes crackles or rubs CV: Rate rhythm is regular no murmurs rubs or clicks Abdomen is soft nontender no masses positive bowel sounds all 4 quadrants Back: No CVA tenderness no spinous process tenderness from cervical spine thoracic and lumbar spine Skin: Intact no petechiae rash induration ulceration or crepitus Extremities: Moving all extremity against resistance cap refill less than 2 seconds neurosensory intact Neuro: Awake alert oriented x2, person and place, Glascow coma 15 no focal deficits] Course Quality Measures none Orders Category Date Time Status EKG (ED ONLY) *Do not use* NOW Care 12/03/24 15:34 Completed EKG (ED Only) Stat Exams 12/03/24 15:34 Draft EKG (ED Only) Urgent Exams 12/03/24 15:34 Draft XR chest 1V Stat Exams 12/03/24 16:12 Completed B-Type Natriuretic Peptide Stat Lab 12/03/24 15:52 Completed CBC Stat Lab 12/03/24 15:52 Completed Comprehensive Metabolic Panel Stat Lab 12/03/24 15:52 Completed Drug Screen,Urine Stat Lab 12/03/24 16:24 Completed LDH (Lactate Dehydrogenase) Stat Lab 12/03/24 15:52 Completed Magnesium Stat Lab 12/03/24 15:52 Completed Partial Thromboplastin Time Stat Lab 12/03/24 15:52 Completed Prothrombin Time with INR Stat Lab 12/03/24 15:52 Completed Troponin I Stat Lab 12/03/24 15:52 Completed Troponin I Stat Lab 12/03/24 18:06 Completed Urinalysis Stat Lab 12/03/24 16:24 Completed Magnesium Oxide [Mag-Ox 400] Med 12/03/24 17:56 Discontinued 400 mg PO X1 ONE Vital Signs Vital signs: Vital Signs Temperature 98.0 F 12/03/24 15:39 Pulse Rate 87 12/03/24 15:39 Respiratory Rate 25 H 12/03/24 15:39 Blood Pressure 75/56 L 12/03/24 15:39 Pulse Oximetry (%) 96 12/03/24 15:39 Oxygen Delivery Method Room Air 12/03/24 15:39 Discharge Plan Plan Patient Disposition: HOME (Self Care) Patient condition on transfer: Stable Prescriptions/Referrals Prescriptions/Med Rec: No Action famotidine [Pepcid] 40 mg tablet 40 mg PO QDAY Qty: 30 0RF ticagrelor [Brilinta] 90 mg Tablet 90 mg PO BID 30 Days Qty: 60 1RF atorvastatin 80 mg tablet 80 mg PO QPM Qty: 30 3RF fluticasone propionate 50 mcg/actuation spray,suspension 2 spray INTRANASAL Q12H Patient Comments: SPRAY 1 SPRAY INTO EACH NOSTRIL TWICE A DAY budesonide-formoterol [Breyna] 80-4.5 mcg/actuation HFA aerosol inhaler 2 puff INHALATION QDAY Patient Comments: USE DAILY INHALATION 30 DAYS aspirin 81 mg Tablet,Delayed Release (Dr/Ec) 81 mg PO QDAY 30 Days Qty: 30 0RF metoprolol succinate 25 mg Tablet Extended Release 24 Hr 25 mg PO QDAY 30 Days Qty: 30 0RF lisinopril 10 mg tablet 10 mg PO QDAY 30 Days Qty: 30 0RF furosemide [Lasix] 40 mg tablet 40 mg PO QAM 30 Days Qty: 30 0RF ipratropium bromide 17 mcg/actuation HFA aerosol inhaler 2 puff inhalation TID PRN (Reason: shortness of breath or wheezing) Qty: 12.9 0RF Referrals: Walt Squires MD [Primary Care Provider] - In 1 week Problem List Clinical Impression: Chest pain Patient/Caregiver Discharge Instructions Education Materials: ED Chest Pain, Uncertain Cause Additional Instructions: Rest drink plenty of fluids follow-up with your primary care provider if there is worsening of symptoms return the emergency room medially for further evaluation you just bring within the right they are just a second Print Language: Tajik Stand Alone Forms: [employer] Award Info., Work/School Release, Patient Portal Info Letter 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 When compared to an old EKG of October 2024 there are no significant changes. Lab Interpretation Lab(s) interpretation(s): CBC shows no acute leukocytosis and mild anemia no thrombocytopenia Coags within acceptable limits CMP shows a mildly elevated glucose at 114 no other electrolyte imbalances renal impairment mag of 1.4 no transaminitis or T. bili elevation BNP of 180 Troponin of 1 Urine is negative UDS is negative repeat troponin is negative this time patient's vital signs are stable discharge the patient home with chest pain Imaging Radiology reports / interpretation(s): X-rays interpreted by radiologist sides diffuse interstitial disease with no focal point. Medication Administration(s) Medication Administration History Discontinued Medications Magnesium Oxide (Magnesium Oxide 400 Mg Tablet) 400 mg PO X1 ONE Stop: 12/03/24 17:57 Last Admin: 12/03/24 18:06 Dose: 400 mg Documented By: VL Diagnosis Differential diagnosis: ACS [place] pneumonia Dispositon Disposition: Discharge Home
[2024-12-03 16:31] LABS: Basophils # (Auto) 0.1 Thou/mm3 (0.0-0.2); Basophils % (Auto) 1 % (0-2.5); Eosinophils # (Auto) 0.3 Thou/mm3 (0.0-0.5); Eosinophils % (Auto) 4 % (0-10); Hematocrit 37.1 % (41.0-53.0); Hemoglobin 11.3 g/dL (13.5-16.0); Immature Granulocytes Auto 0.01 Thou/mm3 (0.00-0.00); Lymphocytes # (Auto) 2.3 Thou/mm3 (1.0-4.8); Lymphocytes % (Auto) 33 % (10-50); Mean Corpuscular HGB Conc 30.5 g/dl (31.0-37.0); Mean Corpuscular Hemoglobin 23.5 pg (25.0-35.0); Mean Corpuscular Volume 77 fL (80-100); Monocytes # (Auto) 0.7 Thou/mm3 (0.0-0.8); Monocytes % (Auto) 10 % (0-12); Neutrophils # (Auto) 3.7 Thou/mm3 (1.8-7.7); Neutrophils % (Auto) 53 % (37-80); Nucleated Red Blood Cell # 0.00 Thou/mm3 (0.00-0.00); Nucleated Red Blood Cell % 0 /100 WBC (0); Platelet Count 286 Thou/mm3 (140-440); RDW Standard Deviation 48.7 fL (35.1-43.9); Red Blood Count 4.80 Miln/mm3 (4.50-5.90); White Blood Count 7.0 Thou/mm3 (3.8-10.6)
[2024-12-03 16:34] LABS: Collection Type, Urine Clean Catch; Squamous Epithelial Cell,Urine 0 /hpf (0-5)
[2024-12-03 16:42] LABS: Bilirubin,Urine Negative (Negative); Blood,Urine Negative (Negative); Clarity,Urine Clear (Clear/Hazy); Color,Urine Colorless (Lt Yel-Yel); Glucose, Urine Negative (Negative); Ketones,Urine Negative (Negative); Leukocyte Esterase,Urine Negative (Negative); Nitrite,Urine Negative (Negative); PH,Urine 6.5 (5.0-7.0); Protein,Urine Negative (Neg - Trace); RBC,Urine < 1 /hpf (0-3); Specific Gravity,Urine 1.009 (1.001-1.035); Urobilinogen,Urine Negative mg/dL (0.0-1.0); WBC,Urine < 1 /hpf (0-5)
[2024-12-03 16:47] LABS: INR 1.1 (0.9-1.3); Partial Thromboplastin Time 24.6 Seconds (22.0-36.0); Prothrombin Time 11.6 Seconds (9.0-12.2)
[2024-12-03 16:49] LABS: Amphetamine/Methamp Scrn,U Negative (Negative); Barbiturate Screen,Urine Negative (Negative); Benzodiazepines Screen,Urine Negative (Negative); Benzoylecgonine Screen, Ur Negative (Negative); Fentanyl Screen,Urine Negative (Negative); Opiate Screen,Urine Negative (Negative); THC Screen,Urine Negative (Negative)
[2024-12-03 16:50] LABS: Alanine Aminotransferase 22 U/L (10-49); Albumin, Serum 3.6 gm/dL (3.4-4.8); Albumin/Globulin Ratio 1.3 (1.2-2.2); Alkaline Phosphatase 113 U/L (46-116); Anion Gap 10 (7-16); Aspartate Amino Transferase 25 U/L (0-34); BUN/Creatinine Ratio 13 Ratio (12-20); Bilirubin,Total 0.3 mg/dL (0.3-1.2); Blood Urea Nitrogen 13 mg/dL (9-23); Calcium 8.4 mg/dL (8.3-10.6); Calcium (Corrected) 8.7 mg/dL (8.5-10.1); Carbon Dioxide 25.7 mMol/L (20.0-31.0); Chloride 106 mMol/L (98-107); Creatinine (Component) 1.0 mg/dL (0.6-1.3); Estimated Creatinine Clearance 58.2 mL/min (>60); Globulin 2.7 gm/dL (2.3-3.5); Glucose 114 mg/dL (74-106); LDH (Lactate Dehydrogenase) 218 U/L (120-246); Magnesium 1.4 mg/dL (1.6-2.6); Osmolality,Calculated 284 (275-295); Potassium 3.8 mMol/L (3.4-5.1); Sodium 142 mMol/L (136-145); Total Protein 6.3 gm/dL (5.7-8.2); Troponin I < 0.020 ng/mL (0.0-0.045); eGFR > 60 See Note
[2024-12-03 16:52] LABS: B-Type Natriuretic Peptide 180 pg/mL (0-100)
[2024-12-03] MEDS: MAGNESIUM OXIDE 400 MG TABLET PO (18:06)
[2024-12-03 18:42] LABS: Troponin I < 0.020 ng/mL (0.0-0.045)
== END 2024-12-03 20:00 | disposition home or self-care (01) ==
PROVIDERS: Registered Nurse General Practice; Emergency Provider Emergency Medicine; PCP Family Medicine
DX: R07.9 Chest pain, unspecified (principal); R06.02 Shortness of breath; I50.9 Heart failure, unspecified; I25.2 Old myocardial infarction; Z87.891 Personal history of nicotine dependence
CPT/HCPCS: 36415; 71045; 80053; 80307; 81001; 83615; 83735; 83880; 84484; 85025; 85610; 85730; 93005; 99283; A9270

== ENCOUNTER 2024-12-09 19:16 | Emergency (ER) | payer MEDICARE, SELFPAY ==
[2024-12-09 19:33] VITALS: BP 87/53; PULSE 90; RESP 18; TEMP 36.3; O2SAT 90
[2024-12-09 19:34] VITALS: PULSE 98; O2SAT 94
[2024-12-09 19:36] VITALS: BMI 21.9
--- NOTE | 2024-12-09 19:56 | EKG_ITS ---
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
--- NOTE | 2024-12-09 19:56 | XR_ITS ---
Examination: AP chest single view TECHNIQUE: AP portable upright chest single view Date and time: December 09, 2024 1939 hours Comparison December 03, 2024 INDICATION: Syncopal episode today. FINDINGS: Normal heart size No aspiration pneumonia Accentuation interstitial markings throughout the lungs Prominent osteopenia IMPRESSION: Pulmonary fibrosis
--- NOTE | 2024-12-09 19:56 | XR_ITS ---
Examination: CT brain head without contrast. 2-D sagittal coronal reconstructions Date and time of exam:December 09, 2024, 2047 hours INDICATIONS: Abdominal pain today head pain CTDI: vol (mGy):50.3 DLP: (mGycm):1002 Technique: Multiple CT axial sections of the brain have been obtained, 5 mm slice thickness. Contrast has not been administered. 2-D sagittal, coronal reconstructions have been obtained Low dose protocols were performed. One or more of the following dose reduction techniques were used; automated exposure control, adjustment of the mA and/or KV according to patient size, use of iterative reconstruction technique. Findings: No significant ventricular enlargement. Intra-axial or extra-axial hemorrhage density is not seen. No mass effect or midline shift Basal cisterns are not remarkable. Fourth ventricle is midline. Cranial vault intact. Impression: Negative for acute hemorrhage, mass effect or midline shift
[2024-12-09] MEDS: SODIUM CHLORIDE 0.9% 1000 ML 1,000 ML 999 ML IV ×2 (20:04→23:13)
[2024-12-09] MEDS: ONDANSETRON INJ 2 MG/ML INJ 2 ML 4 MG IVP (20:04)
[2024-12-09 20:26] LABS: Basophils # (Auto) 0.0 Thou/mm3 (0.0-0.2); Basophils % (Auto) 0 % (0-2.5); Eosinophils # (Auto) 0.1 Thou/mm3 (0.0-0.5); Eosinophils % (Auto) 1 % (0-10); Hematocrit 36.1 % (41.0-53.0); Hemoglobin 11.2 g/dL (13.5-16.0); Immature Granulocytes Auto 0.02 Thou/mm3 (0.00-0.00); Lymphocytes # (Auto) 1.2 Thou/mm3 (1.0-4.8); Lymphocytes % (Auto) 17 % (10-50); Mean Corpuscular HGB Conc 31.0 g/dl (31.0-37.0); Mean Corpuscular Hemoglobin 24.0 pg (25.0-35.0); Mean Corpuscular Volume 77 fL (80-100); Monocytes # (Auto) 0.5 Thou/mm3 (0.0-0.8); Monocytes % (Auto) 7 % (0-12); Neutrophils # (Auto) 5.6 Thou/mm3 (1.8-7.7); Neutrophils % (Auto) 75 % (37-80); Nucleated Red Blood Cell # 0.00 Thou/mm3 (0.00-0.00); Nucleated Red Blood Cell % 0 /100 WBC (0); Platelet Count 252 Thou/mm3 (140-440); RDW Standard Deviation 49.5 fL (35.1-43.9); Red Blood Count 4.67 Miln/mm3 (4.50-5.90); White Blood Count 7.5 Thou/mm3 (3.8-10.6)
[2024-12-09 20:41] LABS: Alanine Aminotransferase 29 U/L (10-49); Albumin, Serum 4.2 gm/dL (3.4-4.8); Albumin/Globulin Ratio 1.4 (1.2-2.2); Alkaline Phosphatase 104 U/L (46-116); Anion Gap 14 (7-16); Aspartate Amino Transferase 25 U/L (0-34); BUN/Creatinine Ratio 14 Ratio (12-20); Bilirubin,Total 0.5 mg/dL (0.3-1.2); Blood Urea Nitrogen 30 mg/dL (9-23); Calcium 9.7 mg/dL (8.3-10.6); Calcium (Corrected) 9.7 mg/dL (8.5-10.1); Carbon Dioxide 23.3 mMol/L (20.0-31.0); Chloride 107 mMol/L (98-107); Creatinine (Component) 2.2 mg/dL (0.6-1.3); Estimated Creatinine Clearance 28.2 mL/min (>60); Globulin 3.1 gm/dL (2.3-3.5); Glucose 147 mg/dL (74-106); Osmolality,Calculated 296 (275-295); Potassium 3.8 mMol/L (3.4-5.1); Sodium 144 mMol/L (136-145); Total Protein 7.3 gm/dL (5.7-8.2); Troponin I 0.029 ng/mL (0.0-0.045); eGFR 31 See Note
[2024-12-09 20:48] LABS: B-Type Natriuretic Peptide 236 pg/mL (0-100)
[2024-12-09 21:35] VITALS: BP 101/67; PULSE 88; RESP 17; O2SAT 100
--- NOTE | 2024-12-09 21:37 | PD.EDABDPN ---
ED Abdominal Pain RME/HPI General Chief Complaint: Abdominal Pain Stated complaint: ABD PAIN Time seen by provider: 12/09/24 19:22 Arrival date/time: 12/09/24 19:16 This is a 74-year-old male with a past medical history of CAD s/p RCA stent (03/2024), HFrEF (EF now 30%), COPD/asthma, hypertension, methamphetamine use, and housing insecurity. Related Data Home Medications ?Medication ?Instructions ?Recorded ?Confirmed budesonide-formoterol HFA 80 2 puff inhalation QDAY 11/26/24 11/26/24 mcg-4.5 mcg/actuation aerosol inhaler (Breyna) fluticasone propionate 50 2 spray intranasal Q12H 11/26/24 11/26/24 mcg/actuation nasal spray,suspension Previous Rx's ?Medication ?Instructions ?Recorded famotidine 40 mg tablet (Pepcid) 40 mg PO QDAY #30 tabs 04/27/20 atorvastatin 80 mg tablet 80 mg PO QPM #30 tabs 03/18/24 ticagrelor 90 mg tablet (Brilinta) 90 mg PO BID 1 month #60 tabs 03/18/24 aspirin 81 mg tablet,delayed 81 mg PO QDAY 1 month #30 tabs 11/27/24 release furosemide 40 mg tablet (Lasix) 40 mg PO QAM 1 month #30 tabs 11/27/24 ipratropium bromide 17 2 puff inhalation TID PRN 11/27/24 mcg/actuation HFA aerosol inhaler shortness of breath or wheezing #12.9 grams lisinopril 10 mg tablet 10 mg PO QDAY 1 month #30 tabs 11/27/24 metoprolol succinate 25 mg 25 mg PO QDAY 1 month #30 tabs 11/27/24 tablet,extended release 24 hr Allergies Allergy/AdvReac Type Severity Reaction Status Date / Time No Known Allergies Allergy Verified 11/25/24 19:34 Review of Systems Review of Systems Systems Reviewed: All systems reviewed, normal except as documented Past Medical History Past Medical History CARDIAC: Positive Cardiac Disorders, Myocardial Infarction and Congestive Heart Failure RESPIRATORY: Positive Chronic Obstructive Pulmonary Disease (COPD) and Asthma GASTROINTESTINAL: Positive Gastrointestinal Disorders, Ulcer and Gastroesophageal Reflux Disease GENITOURINARY: Negative Renal Disease ENT: Positive Cataracts ENDOCRINE: Negative Diabetes Mellitus Type 1 or Diabetes Mellitus Type 2 HEMATOLOGIC: Negative Sickle Cell Disease Surgical History SURGICAL: Positive Coronary Stent Social History SMOKING STATUS: Former smoker SECOND HAND EXPOSURE: Yes SUBSTANCE USE: does not use ED Exam Narrative Physical exam: VITAL SIGNS: Reviewed. GENERAL APPEARANCE: Alert and interactive, follows commands, no acute distress, HEAD AND FACE: Non-traumatic. ENT: PERRL, conjuctiva pink and clear, eyelid no trauma, Mucous membrane moist. NECK: Supple, nontender, no nuchal rigidity. CHEST: No tenderness, no crepitus, no paradoxical movement, no retractions. LUNGS: Clear, long expiratory phase. Diminished at the bases. HEART: Regular rate, regular rhythm, no murmur, no gallops. ABDOMEN: Soft, nondistended, no guarding, nontender, no rebound, no masses, NEUROLOGICAL: Gross motor function intact sensory function intact, Appropriate for age. MUSCULOSKELETAL: low back nontender, full range of motion. EXTREMITIES: No redness no swelling no skin breakdown on bilateral foot and leg. Distal neurovascular status intact bilateral foot SKIN: Color pink, dry, no rash Course Quality Measures none Orders Category Date Time Status EKG (ED ONLY) *Do not use* NOW Care 12/09/24 19:56 Completed IV [Insert IV] STAT Care 12/09/24 19:[address] head/brain wo con Stat Exams 12/09/24 19:56 Completed EKG (ED Only) Stat Exams 12/09/24 19:56 Draft XR chest 1V Stat Exams 12/09/24 19:56 Completed BNP [B-Type Natriuretic Peptide] Stat Lab 12/09/24 20:06 Completed CBC Stat Lab 12/09/24 20:06 Completed Comprehensive Metabolic Panel Stat Lab 12/09/24 20:06 Completed Comprehensive Metabolic Panel Stat Lab 12/09/24 23:20 Completed Troponin I Stat Lab 12/09/24 20:06 Completed Troponin I Stat Lab 12/09/24 23:20 Completed Urinalysis, C/S if Indicated Stat Lab 12/10/24 00:25 Completed Ondansetron Inj [Zofran Inj] Med 12/09/24 19:57 Discontinued 4 mg IVP X1 ONE Sodium Chloride 0.9% 1000 ml [Ns] 1,000 ml Med 12/09/24 19:57 Discontinued IV 999 mls/hr Sodium Chloride 0.9% 1000 ml [Ns] 1,000 ml Med 12/09/24 22:44 Discontinued IV 999 mls/hr Vital Signs Vital signs: Vital Signs Temperature 97.3 F 12/09/24 19:33 Pulse Rate 90 12/09/24 19:33 Respiratory Rate 18 12/09/24 19:33 Blood Pressure 87/53 L 12/09/24 19:33 Pulse Oximetry (%) 90 L 12/09/24 19:33 Oxygen Delivery Method Room Air 12/09/24 19:33 PROCEDURES: EKG Interpretation #1: Date of EK12/09/24 Time of EK:20 Rate: 82 Interpretation: Interpreted by me (Sinus rhythm with left ventricular hypertrophy) EKG Impression: No ectopy and Normal intervals Abdominal Pain MDM MDM Narrative MDM Narrative:: Labs reviewed. CBC shows white count 7.5, hemoglobin and hematocrit 11.2 and 36.1. BMP shows sodium 05/02/1943 potassium 3.8 chloride 107 bicarb 23.3 BUN of 30 creatinine 2.2. This is different from patient's baseline. Patient was slightly hypotensive upon arrival. Patient given a liter of fluids. Blood pressure is much improved. An additional liter of fluid ordered at that time. EKG shows left ventricular hypertrophy and sinus rhythm. Discussed case with Dr. Seals. Will give patient a total of 2 L of fluid. Will recheck a renal panel and an additional troponin after fluids given. Will ambulate patient after that and if able to ambulate we will send patient home. He will follow-up with results. Chest x ray: FINDINGS: Normal heart size No aspiration pneumonia Accentuation interstitial markings throughout the lungs Prominent osteopenia IMPRESSION: Pulmonary fibrosis Luzmaria dictation: Although this document has been carefully reviewed, there may still be some phonetic and other typographical errors. These errors are purely grammatical due to imperfections in the software program and should not be construed in any way to compromise the substance of the patient's medical care during this visit. Patient data External records reviewed:: [facility] previous records Clinical information provided by:: patient Social determinants that could affect healthcare access:: none Patient has the following chronic illnesses:: none How is presenting disease/condition affected by chronic disease/condition?: uneffected by Evaluation data The following diagnostics were reviewed and interpreted by me:: lab results, radiology exam(s) and EKG tracing(s) Lab and/or radiology exams considered but not ordered:: none Interpretation Summary: see note Medications / Prescriptions Medications or Prescriptions considered but not ordered:: none Medication administrations:: Medication Administration History Discontinued Medications Sodium Chloride (Ns) 1,000 mls @ 999 mls/hr IV .Q1H1M ONE Stop: 12/09/24 20:57 Last Infusion: 12/09/24 23:16 Dose: Infused Documented By: Admin: 12/09/24 20:04 Dose: 999 mls/hr Documented By: DEANDRE Sodium Chloride (Ns) 1,000 mls @ 999 mls/hr IV .Q1H1M ONE Stop: 12/09/24 23:44 Last Infusion: 12/10/24 00:40 Dose: Infused Documented By: Admin: 12/09/24 23:13 Dose: 999 mls/hr Documented By: AM Ondansetron HCl (Ondansetron Inj 2 Mg/Ml Inj 2 Ml) 4 mg IVP X1 ONE; Protocol Stop: 12/09/24 19:58 Last Admin: 12/09/24 20:04 Dose: 4 mg Documented By: DEANDRE [facility] Consultations Consultation(s) initiated? (list below): No Diagnosis Differential diagnosis abdominal pain: abdominal pain, acute appendicitis, calculus of kidney and other (dehydration and bailey) Most likely diagnosis given after review of the tests above:: dehydration and bailey Admission Indicated Admission indicated?: not indicated Admission Request Was there a request for admission?: No Disposition Plan Disposition Plan: Discharge Discharge Attestation Discharge Attestation: The patient and all family members were given an opportunity to ask questions and understood the discharge instructions. Discharge instructions specifically effects, indications for sooner follow up or return to the emergency department, and the expected course of current diagnosis. Patient condition: Stable Discharge Plan Plan Patient Disposition: HOME (Self Care) Discharge Disposition comment: stable Patient condition on transfer: Stable Prescriptions/Referrals Prescriptions/Med Rec: No Action famotidine [Pepcid] 40 mg tablet 40 mg PO QDAY Qty: 30 0RF ticagrelor [Brilinta] 90 mg Tablet 90 mg PO BID 30 Days Qty: 60 1RF atorvastatin 80 mg tablet 80 mg PO QPM Qty: 30 3RF fluticasone propionate 50 mcg/actuation spray,suspension 2 spray INTRANASAL Q12H Patient Comments: SPRAY 1 SPRAY INTO EACH NOSTRIL TWICE A DAY budesonide-formoterol [Breyna] 80-4.5 mcg/actuation HFA aerosol inhaler 2 puff INHALATION QDAY Patient Comments: USE DAILY INHALATION 30 DAYS aspirin 81 mg Tablet,Delayed Release (Dr/Ec) 81 mg PO QDAY 30 Days Qty: 30 0RF metoprolol succinate 25 mg Tablet Extended Release 24 Hr 25 mg PO QDAY 30 Days Qty: 30 0RF lisinopril 10 mg tablet 10 mg PO QDAY 30 Days Qty: 30 0RF furosemide [Lasix] 40 mg tablet 40 mg PO QAM 30 Days Qty: 30 0RF ipratropium bromide 17 mcg/actuation HFA aerosol inhaler 2 puff inhalation TID PRN (Reason: shortness of breath or wheezing) Qty: 12.9 0RF Referrals: Walt Squires MD [Primary Care Provider] - In 1 week Problem List Clinical Impression: Dehydration, BAILEY (acute kidney injury) Patient/Caregiver Discharge Instructions Discharge Activity: activity as tolerated Education Materials: ED Dehydration (Adult), ED Renal Insufficiency Additional Instructions: Avoid prolonged heat exposure, increase fluid hydration, follow-up with primary care doctor in 1 week for repeat serum chemistries. Return if worsening Print Language: Persian Stand Alone Forms: [place] Award Info., Patient Portal Info Letter FELIPA/DAHLIA Supervising Physician FELIPA/DAHLIA Supervising Physician: Adal
[2024-12-09 21:51] VITALS: BP 101/67; PULSE 93; RESP 19; TEMP 36.6; O2SAT 97
[2024-12-09 23:02] VITALS: BP 105/60; PULSE 91; RESP 18; TEMP 36.6; O2SAT 96
--- NOTE | 2024-12-09 23:18 | PD.EDADDENDU ---
Emergency Room Addendum Addendum Narrative: 2300: Care assumed from Renetta Huffman NP. Past medical, surgical, social and family history reviewed. Vitals and home medications reviewed. Results and treatment plan discussed. I will assume the care of the patient at this time and will follow the patient, pending repeat labs and final disposition. Please refer to the emergency department record for history and examination from initial visit. 74yo male with known cardiomyopathy/COPD, reported methamphetamine use presenting with abdominal pain. 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 After IV fluids, patient's blood pressure stabilized and renal function improved. Patient ambulating without difficulty and reports overall subjective improvement. No signs of cardiac insult and CT brain unremarkable. Suspect hypotension likely related to volume depletion. No signs of sepsis. Further inquiry indicated patient exposed to ambient temperatures over 100 degrees in an enclosed space for several hours. Patient considered stable for discharge. Will advise to increase fluid intake, follow-up chemistries in 1 week, and avoid prolonged heat exposure. Dx: dehydration, BAILEY.
[2024-12-09 23:50] LABS: Alanine Aminotransferase 23 U/L (10-49); Albumin, Serum 3.4 gm/dL (3.4-4.8); Albumin/Globulin Ratio 1.3 (1.2-2.2); Alkaline Phosphatase 91 U/L (46-116); Anion Gap 10 (7-16); Aspartate Amino Transferase 23 U/L (0-34); BUN/Creatinine Ratio 17 Ratio (12-20); Bilirubin,Total 0.3 mg/dL (0.3-1.2); Blood Urea Nitrogen 30 mg/dL (9-23); Calcium 8.3 mg/dL (8.3-10.6); Calcium (Corrected) 8.8 mg/dL (8.5-10.1); Carbon Dioxide 23.1 mMol/L (20.0-31.0); Chloride 109 mMol/L (98-107); Creatinine (Component) 1.8 mg/dL (0.6-1.3); Estimated Creatinine Clearance 34.4 mL/min (>60); Globulin 2.6 gm/dL (2.3-3.5); Glucose 109 mg/dL (74-106); Osmolality,Calculated 290 (275-295); Potassium 4.0 mMol/L (3.4-5.1); Sodium 142 mMol/L (136-145); Total Protein 6.0 gm/dL (5.7-8.2); Troponin I < 0.020 ng/mL (0.0-0.045); eGFR 39 See Note
[2024-12-10 00:40] LABS: Collection Type, Urine Voided
[2024-12-10 00:52] LABS: Bilirubin,Urine Negative (Negative); Blood,Urine Negative (Negative); Clarity,Urine Turbid (Clear/Hazy); Color,Urine Yellow (Lt Yel-Yel); Culture Indicated,Urine Not Indicated; Glucose, Urine Negative (Negative); Hyaline Casts,Urine 1 /hpf (0-1); Ketones,Urine Negative (Negative); Leukocyte Esterase,Urine Negative (Negative); Nitrite,Urine Negative (Negative); PH,Urine 5.0 (5.0-7.0); Protein,Urine Negative (Neg - Trace); RBC,Urine 2 /hpf (0-3); Specific Gravity,Urine 1.022 (1.001-1.035); Squamous Epithelial Cell,Urine 4 /hpf (0-5); Urobilinogen,Urine Negative mg/dL (0.0-1.0); WBC,Urine 8 /hpf (0-5)
== END 2024-12-10 01:04 | disposition home or self-care (01) ==
PROVIDERS: Nurse Practitioner Family; Emergency Provider Emergency Medicine; PCP Family Medicine
DX: N17.9 Acute kidney failure, unspecified (principal); E86.0 Dehydration; I95.9 Hypotension, unspecified; F15.90 Other stimulant use, unspecified, uncomplicated; J84.10 Pulmonary fibrosis, unspecified; I11.0 Hypertensive heart disease with heart failure; I42.9 Cardiomyopathy, unspecified; I50.22 Chronic systolic (congestive) heart failure; I25.10 Atherosclerotic heart disease of native coronary artery without angina pectoris; I25.2 Old myocardial infarction; K21.9 Gastro-esophageal reflux disease without esophagitis; J44.89 Other specified chronic obstructive pulmonary disease; Z95.5 Presence of coronary angioplasty implant and graft; Z87.891 Personal history of nicotine dependence; Z79.899 Other long term (current) drug therapy; Z79.82 Long term (current) use of aspirin
CPT/HCPCS: 36415; 70450; 71045; 80053; 80307; 81001; 83880; 84484; 85025; 93005; 96361; 96374; 99284; J2405; J7030

== ENCOUNTER 2025-04-01 13:42 | Emergency (ER) | payer MEDICARE, SELFPAY ==
[2025-04-01 13:51] VITALS: PULSE 95; O2SAT 97; BMI 20.8
[2025-04-01 13:57] VITALS: BP 132/73; PULSE 90; RESP 18; TEMP 36.5; O2SAT 96
--- NOTE | 2025-04-01 14:22 | XR_ITS ---
EXAMINATION: PA chest single view TECHNIQUE: Upright PA chest single view Date and time: April 01, 2025, 1436 hours, comparison December 09, 2024 INDICATIONS: Weakness shortness of breath today. FINDINGS: Normal heart size Abnormal interstitial disease throughout the lungs Possible 20 mm cavitary lesion in the right upper lobe Prominent osteopenia IMPRESSION: Interstitial disease throughout the lungs and possible 20 mm cavitary lesion right upper lobe, suggest CT chest without contrast follow-up
--- NOTE | 2025-04-01 14:22 | EKG_ITS ---
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1950 Requested By: Jhon Worley Order Number: [id number] Reading MD: Jhon Worley Measurements Intervals [place] Rate: 92 P: 68 SD: 162 QRS: -74 QRSD: 126 T: 75 QT: 396 QTc: 490 Interpretive Statements SINUS RHYTHM WITH OCCASIONAL SUPRAVENTRICULAR PREMATURE COMPLEXES RIGHT BUNDLE BRANCH BLOCK [120+ ms QRS DURATION, UPRIGHT V1, 40+ ms S IN I/aVL/V4/V5/V6] LEFT VENTRICULAR HYPERTROPHY AND ST-T CHANGE [VOLTAGE CRITERIA PLUS ST/T ABNORMALITY] INFERIOR MYOCARDIAL INFARCTION , OF INDETERMINATE AGE [40+ ms Q WAVE AND/OR ST/T ABNORMALITY IN II/aVF] Compared to ECG 12/09/2024 20:20:46 Right bundle-branch block now present Myocardial infarct finding now present ST (T wave) deviation still present /store/S0/[id number]
--- NOTE | 2025-04-01 14:32 | PD.EDRME ---
Rapid Medical Screening Exam RME Arrival date/time: 04/01/25 13:42 74-year-old male with a history of hyperlipidemia, CHF, COPD presents to the emergency room with a chief complaint of dizziness and abdominal pain x 1 day I have greeted and performed a focused initial assessment of this patient. A comprehensive ED assessment and evaluation of the patient, analysis of all test results, and completion of the medical decision making process will be conducted by additional ED providers. Chief Complaint: Dizziness Time Seen by Provider: 04/01/25 14:29 Vital signs: Vital Signs Temperature 97.7 F 04/01/25 13:57 Pulse Rate 90 04/01/25 13:57 Respiratory Rate 18 04/01/25 13:57 Blood Pressure 132/73 H 04/01/25 13:57 Pulse Oximetry (%) 96 04/01/25 13:57 Oxygen Delivery Method Room Air 04/01/25 13:57 Vital signs reviewed by provider: Yes Exam: Clear bilateral lung sounds Strong and regular rhythm Clinical Impression: STEMI/NSTEMI/CHF exacerbation
[2025-04-01 14:47] LABS: Basophils # (Auto) 0.0 Thou/mm3 (0.0-0.2); Basophils % (Auto) 0 % (0-2.5); Eosinophils # (Auto) 0.1 Thou/mm3 (0.0-0.5); Eosinophils % (Auto) 1 % (0-10); Hematocrit 37.7 % (41.0-53.0); Hemoglobin 12.0 g/dL (13.5-16.0); Immature Granulocytes Auto 0.02 Thou/mm3 (0.00-0.00); Lymphocytes # (Auto) 1.2 Thou/mm3 (1.0-4.8); Lymphocytes % (Auto) 14 % (10-50); Mean Corpuscular HGB Conc 31.8 g/dl (31.0-37.0); Mean Corpuscular Hemoglobin 25.4 pg (25.0-35.0); Mean Corpuscular Volume 80 fL (80-100); Monocytes # (Auto) 0.8 Thou/mm3 (0.0-0.8); Monocytes % (Auto) 10 % (0-12); Neutrophils # (Auto) 6.1 Thou/mm3 (1.8-7.7); Neutrophils % (Auto) 74 % (37-80); Nucleated Red Blood Cell # 0.00 Thou/mm3 (0.00-0.00); Nucleated Red Blood Cell % 0 /100 WBC (0); Platelet Count 248 Thou/mm3 (140-440); RDW Standard Deviation 47.5 fL (35.1-43.9); Red Blood Count 4.73 Miln/mm3 (4.50-5.90); White Blood Count 8.2 Thou/mm3 (3.8-10.6)
[2025-04-01 15:05] LABS: B-Type Natriuretic Peptide 348 pg/mL (0-100)
[2025-04-01 15:08] LABS: Alanine Aminotransferase 15 U/L (10-49); Albumin, Serum 3.7 gm/dL (3.4-4.8); Albumin/Globulin Ratio 1.3 (1.2-2.2); Alkaline Phosphatase 133 U/L (46-116); Anion Gap 8 (7-16); Aspartate Amino Transferase 18 U/L (0-34); BUN/Creatinine Ratio 13 Ratio (12-20); Bilirubin,Total 0.6 mg/dL (0.3-1.2); Blood Urea Nitrogen 13 mg/dL (9-23); Calcium 9.0 mg/dL (8.3-10.6); Calcium (Corrected) 9.2 mg/dL (8.5-10.1); Carbon Dioxide 25.7 mMol/L (20.0-31.0); Chloride 105 mMol/L (98-107); Creatinine (Component) 1.0 mg/dL (0.6-1.3); Estimated Creatinine Clearance 58.6 mL/min (>60); Free T4 (Free Thyroxine) 1.30 ng/dL (0.89-1.76); Globulin 2.9 gm/dL (2.3-3.5); Glucose 115 mg/dL (74-106); Osmolality,Calculated 278 (275-295); Potassium 4.8 mMol/L (3.4-5.1); Sodium 139 mMol/L (136-145); Thyroid Stimulating Hormone 1.20 uIU/mL (0.55-4.78); Total Protein 6.6 gm/dL (5.7-8.2); Troponin I < 0.020 ng/mL (0.0-0.045); eGFR > 60 See Note
--- NOTE | 2025-04-01 15:27 | EDNOTE_ITS ---
<Statement entered by Madhavi Lyon MD - 04/13/25 06:31> As co-signing physician, I was present and available for consult prn. I concur with the plan and care as documented by the midlevel provider. ED General RME/HPI General Chief complaint: Dizziness Stated complaint: VOMITING Time Seen by Provider: 04/01/25 14:29 Arrival date/time: 04/01/25 13:42 CC: Dizziness HPI patient presents to the ER via EMS with dizziness that has since resolved. The patient denies fever chills chest pain shortness of breath difficulty breathing headache nausea vomiting or diarrhea. RME / HPI RME / HPI narrative: 04/01/25 13:42 74-year-old male with a history of hyperlipidemia, CHF, COPD presents to the emergency room with a chief complaint of dizziness and abdominal pain x 1 day I have greeted and performed a focused initial assessment of this patient. A comprehensive ED assessment and evaluation of the patient, analysis of all test results, and completion of the medical decision making process will be conducted by additional ED providers. Exam: Clear bilateral lung sounds Strong and regular rhythm Impression: STEMI/NSTEMI/CHF exacerbation Related Data Home Medications ?Medication ?Instructions ?Recorded ?Confirmed budesonide-formoterol HFA 80 2 puff inhalation QDAY 11/26/24 mcg-4.5 mcg/actuation aerosol inhaler (Breyna) fluticasone propionate 50 2 spray intranasal Q12H 10/3111/26/24 mcg/actuation nasal spray,suspension Previous Rx's ?Medication ?Instructions ?Recorded famotidine 40 mg tablet (Pepcid) 40 mg PO QDAY #30 tab s 04/27/20 atorvastatin 80 mg tablet 80 mg PO QPM #30 tabs ticagrelor 90 mg tablet (Brilinta) 90 mg PO BID 1 nelsy h #60 tabs 03/18/24 ipratropium bromide 17 2 puff inhalation TID PRN mcg/actuation HFA aerosol inhaler shortness of breath or wheezing #12.9 grams ondansetron 4 mg disintegrating 4 mg PO Q8H #10 tabs 1 06/02/24 tablet Allergies Allergy/AdvReac Type Severity Reaction Status Date / Time No Known Allergies Allergy Verified 11/25/24 19:34 Review of Systems Review of Systems Narrative Review of Systems: GEN: No fever, no chills, no weight loss EYES: No discharge, no visual changes, no pain HEENT: No ear pain, no congestion, no sore throat PULM: No shortness of breath, no cough, no congestion CV: No chest pain, no dyspnea on exertion, no palpitations GI: No nausea, no vomiting, no diarrhea, no pain, no constipation : No frequency, no urgency, no dysuria MUSC/SKEL: No joint pain, no back pain SKIN: No rash PSYCH: No hallucinations, no depression HEME/LYMPH: No easy bleeding or bruising tendencies NEURO: No weakness, no headache, +dizziness Past Medical History Past Medical History CARDIAC: Positive Cardiac Disorders, Myocardial Infarction and Congestive Heart Failure RESPIRATORY: Positive Chronic Obstructive Pulmonary Disease (COPD) and Asthma GASTROINTESTINAL: Positive Gastrointestinal Disorders, Ulcer and Gastroesophageal Reflux Disease GENITOURINARY: Negative Renal Disease ENT: Positive Cataracts ENDOCRINE: Negative Diabetes Mellitus Type 1 or Diabetes Mellitus Type 2 HEMATOLOGIC: Negative Sickle Cell Disease Surgical History SURGICAL: Positive Coronary Stent Social History SMOKING STATUS: Former smoker SECOND HAND EXPOSURE: Yes SUBSTANCE USE: does not use ED Exam Narrative Physical exam: [General: Thin partially emaciated ill kempt but not in any acute distress Head normocephalic HEENT: Within acceptable limits Neck is supple nontender Chest equal chest rise nontender to palpation Respiratory: Clear to auscultation no wheezes crackles or rubs CV: Rate rhythm is regular no murmurs rubs or clicks Abdomen is soft nontender no masses positive bowel sounds all 4 quadrants Back: No CVA tenderness no spinous process tenderness from cervical spine thoracic and lumbar spine Skin: Intact no petechiae rash induration ulceration or crepitus Extremities: Moving all extremity against resistance cap refill less than 2 seconds neurosensory intact Neuro: Awake alert oriented x3 Glascow coma 15 no focal deficits] Course Quality Measures none Orders Category Date Time Status EKG (ED ONLY) *Do not use* NOW Care 04/01/25 14:[address] chest wo con Stat Exams 04/01/25 15:31 Completed EKG (ED Only) Stat Exams 04/01/25 14:22 Draft XR chest 1V portable Stat Exams 04/01/25 14:22 Completed B-Type Natriuretic Peptide Stat Lab 04/01/25 14:37 Completed CBC Stat Lab 04/01/25 14:37 Completed Comprehensive Metabolic Panel Stat Lab 04/01/25 14:37 Completed Free T4 (Free Thyroxine) Stat Lab 04/01/25 14:37 Completed TSH [Thyroid Stimulating Hormone] Stat Lab 04/01/25 14:37 Completed Troponin I Stat Lab 04/01/25 14:37 Completed Vital Signs Vital signs: Vital Signs Temperature 97.7 F 04/01/25 13:57 Pulse Rate 90 04/01/25 13:57 Respiratory Rate 18 04/01/25 13:57 Blood Pressure 132/73 H 04/01/25 13:57 Pulse Oximetry (%) 96 04/01/25 13:57 Oxygen Delivery Method Room Air 04/01/25 13:57 Discharge Plan Plan Patient Disposition: HOME (Self Care) Patient condition on transfer: Stable Prescriptions/Referrals Prescriptions/Med Rec: New ondansetron 4 mg tablet,disintegrating 4 mg PO Q8H Qty: 10 0RF No Action famotidine [Pepcid] 40 mg tablet 40 mg PO QDAY Qty: 30 0RF ticagrelor [Brilinta] 90 mg Tablet 90 mg PO BID 30 Days Qty: 60 1RF atorvastatin 80 mg tablet 80 mg PO QPM Qty: 30 3RF fluticasone propionate 50 mcg/actuation spray,suspension 2 spray INTRANASAL Q12H Patient Comments: SPRAY 1 SPRAY INTO EACH NOSTRIL TWICE A DAY budesonide-formoterol [Breyna] 80-4.5 mcg/actuation HFA aerosol inhaler 2 puff INHALATION QDAY Patient Comments: USE DAILY INHALATION 30 DAYS ipratropium bromide 17 mcg/actuation HFA aerosol inhaler 2 puff inhalation TID PRN (Reason: shortness of breath or wheezing) Qty: 12.9 0RF Referrals: Walt Squires MD [Primary Care Provider, Family Practice] - In 1 week Problem List Clinical Impression: Dizziness, Nausea Patient/Caregiver Discharge Instructions Education Materials: Nausea Vomit Control-Cancer Care, ED Dizziness, Uncertain Cause Additional Instructions: You have no new lesions in your chest but follow-up with your primary care doctor for outpatient chest x-rays. Take the medication prescribed for nausea. Rest drink plenty of fluids. Print Language: Maori Stand Alone Forms: [place] Award Info., Work/School Release, Patient Portal Info Letter PA/PCTS Supervising Physician ERIN Supervising Physician: Leonid [facility]IN[facility]ADP [facility] Clinical Information Provided by: patient and EMS Medical Records reviewed [facility] and EMS Meds/Rx considered, not ordered None Labs/Rad/Tests considered, not ordered None Chronic Illness/Social Conditions which may negatively complicate care or outcome(s)-explain: None or not applicable EKG Interpretation EKG #1: EKG Interpretation: EKG performed at 1517 shows a ventricular rate of 92 MI interval 162 QRS of 126 QTc of 445 this sinus rhythm occasional supraventricular PVC. Right bundle branch block Labs Labs: interpreted by [place] Lab(s) Interpretation(s): CBC shows no acute leukocytosis there is an anemia with a hemoglobin of 12 and a crit of 37.7. CMP shows no significant electrolyte imbalances renal impairment transaminitis or T. bili elevation. Troponin is negative BNP is 348. TSH and free T4 within acceptable limits. Imaging Imaging interpretation: interpreted by me Imaging Interpretation(s): Cavitary lesion in the chest.
--- NOTE | 2025-04-01 15:31 | XR_ITS ---
Examination: CT chest, without intravenous contrast. Sagittal and coronal 2-D reconstructions. Exam date and time: April 01, 2025, 1635 hours, comparison April 06, 2024 INDICATIONS: History pulmonary fibrosis, subcentimeter pulmonary nodules on CT chest April 06, 2024, chest x-ray today suspicious for cavitary lesion in the right upper lobe CTDI:vol (mGy) 7.94 DLP: (mGycm) 339 Technique: Multiple 3.0 mm axial sections of the chest to been obtained. Bone and lung density settings are obtained. Sagittal and coronal 2-D reconstructions have been obtained. Low dose protocols were performed. One or more of the following dose reduction techniques were used; automated exposure control, adjustment of the mA and/or KV according to patient size, use of iterative reconstruction technique. Findings: No thoracic aortic aneurysm dilatation Heavy calcification left main left anterior descending left circumflex right coronary arteries Mild enlargement cardiac contour Large retrocardiac gastric hernia COPD with multiple areas of airspace destruction Multiple areas of bullous type disease No definite change in subcentimeter bilateral pulmonary nodules Pulmonary scarring, mild Small left lobe liver cyst No gallstones No pancreatic mass Kidneys partially visualized no hydronephrosis Moderate osteopenia IMPRESSION: COPD with areas of bullous since disease Stable bilateral subcentimeter pulmonary nodules No cavitary lesions Mild bilateral pulmonary fibrosis No interval pneumonia or pulmonary edema
[2025-04-01 18:22] VITALS: BP 130/77; PULSE 78; RESP 18; TEMP 36.1; O2SAT 98
--- NOTE | 2025-04-01 18:23 | PC.NURSE ---
18G TO R AC THAT WAS INSERTED BY LEARNING AND DEVELOPMENT ADMINISTRATOR PRIOR TO HOSPITAL ARRIVAL REMOVED AT THIS TIME.
== END 2025-04-01 18:23 | disposition home or self-care (01) ==
PROVIDERS: Nurse Practitioner Family; Emergency Provider Emergency Medicine; PCP Family Medicine
DX: R11.2 Nausea with vomiting, unspecified (principal); R53.1 Weakness; R06.02 Shortness of breath; I45.10 Unspecified right bundle-branch block; I49.1 Atrial premature depolarization; R64 Cachexia; Z68.20 Body mass index [BMI] 20.0-20.9, adult; Z95.5 Presence of coronary angioplasty implant and graft; I50.9 Heart failure, unspecified; I25.2 Old myocardial infarction; Z87.891 Personal history of nicotine dependence
CPT/HCPCS: 36415; 71045; 71250; 80053; 80307; 81001; 83880; 84439; 84443; 84484; 85025; 93005; 99283